=== PATIENT | male | born 1970 | race Caucasian/White ===

== ENCOUNTER 2019-06-05 18:12 | Emergency (ER) | payer MEDICARE, MEDICAID ==
[~2019-06-05] VITALS: Ht 167.6 cm; Wt 85.5 kg
[~2019-06-05 18:12] MED LIST: DULO-31 PO; LAMO150T2 PO; LEVO750T46 PO; PALI3TAB SQ; QUET-1 PO; RISP4TAB7 PO; VAL5T PO
--- NOTE | 2019-06-05 18:43 | NUR ---
I pulled the patient into triage, I gave him a Dr. Alfonso to drink, and he chugged 1/2 the can without any difficulty. He said that he feels like something is stuck in the right side 3/[address] down his neck. He is not drooling, he is swallowing fine.
[2019-06-05 21:23] LABS: BASOPHILS # (AUTO) 0.2 X10'3 (0-0.2); BASOPHILS % (AUTO) 0.8 % (0-1); EOSINOPHILS # (AUTO) 0.2 X10'3 (0-0.9); EOSINOPHILS % (AUTO) 1.1 % (0-6); HEMATOCRIT 44.4 % (42.0-52.0); HEMOGLOBIN 14.9 g/dl (14.0-17.9); LYMPHOCYTES # (AUTO) 3.9 X10'3 (1.1-4.8); LYMPHOCYTES % (AUTO) 17.9 % (21-51); MEAN CORPUSCULAR HEMOGLOBIN 30.9 PG (27.0-31.0); MEAN CORPUSCULAR HGB CONC 33.4 g/dL (33.0-36.5); MEAN CORPUSCULAR VOLUME 92.4 FL (78-98); MEAN PLATELET VOLUME 7.3 FL (7.4-10.4); MONOCYTES # (AUTO) 1.7 X10'3 (0-0.9); MONOCYTES % (AUTO) 7.7 % (2-12); NEUTROPHILS # (AUTO) 15.9 X10'3 (1.8-7.7); NEUTROPHILS % (AUTO) 72.5 % (42-75); PLATELET COUNT 361 X10'3 (140-440); RED BLOOD COUNT 4.81 X10'6 (4.70-6.10); WHITE BLOOD COUNT 21.9 X10'3 (4.5-11.0)
[2019-06-05 21:39] LABS: ALANINE AMINOTRANSFERASE 39 U/L (12-78); ALBUMIN 3.4 G/DL (3.4-5.0); ALBUMIN/GLOBULIN RATIO 0.8 (1.1-1.5); ALKALINE PHOSPHATASE 112 IU/L (46-116); ANION GAP 12 (8-16); ASPARTATE AMINO TRANSFERASE 16 U/L (10-37); BILIRUBIN,TOTAL 0.3 MG/DL (0.1-1.0); BLOOD UREA NITROGEN 11 MG/DL (7-18); CALCIUM 8.9 MG/DL (8.5-10.1); CHLORIDE 101 MMOL/L (99-107); CREATININE 1.22 MG/DL (0.60-1.10); GLUCOSE 101 MG/DL (70-104); POTASSIUM 3.6 MMOL/L (3.5-5.1); SODIUM 139 MMOL/L (135-145); TOTAL CARBON DIOXIDE 26.4 MMOL/L (24-32); TOTAL PROTEIN 7.5 G/DL (6.4-8.2); eGFR 63 ML/MIN
[2019-06-05 21:44] LABS: PARTIAL THROMBOPLASTIN TIME 30 SECONDS (22-32)
--- NOTE | 2019-06-05 22:02 | NUR ---
MD ENRIQUEZ AWARE OF LABS. NO NEW ORDERS.
[2019-06-05] MEDS ORDERED: iohexol 300mg/ml 100ml inj. ONE (22:04)
[2019-06-05] MEDS ORDERED: levoFLOXACIN-Levaquin 750MG/D5 150 ML IV STA (23:36)
[2019-06-05] MEDS ORDERED: CLINDAMYCIN/D5W 900mg/50ml 50 ML IV ONE (23:40)
[2019-06-06] MEDS ORDERED: potassium CL 10mEq/100ml bag 100 ML IV PRN ×2
[2019-06-06] MEDS ORDERED: magnesium 2GM in 50ml NS 50 ML IV PRN
[2019-06-06] MEDS ORDERED: acetaminophen 325mg tablet PO PRN ×2
[2019-06-06] MEDS ORDERED: magnesium 4gm in 100ml NS 100 ML IV PRN
[2019-06-06] MEDS ORDERED: magnesium Cl slow-release 64mg tablet PO PRN
[2019-06-06] MEDS ORDERED: potassium Cl 20 mEq SR tablet PO PRN ×2
[2019-06-06] MEDS ORDERED: ondansetron/PF 4mg/2ml inj IV PRN
[2019-06-06] MEDS ORDERED: normal saline 1000ml 1,000 ML IV ONE
[2019-06-06] MEDS ORDERED: mag hydrox/Alum hydrox/simeth 30ml oral suspension PO PRN
[2019-06-06] MEDS ORDERED: magnesium hydroxide 30ml (MOM) UD suspension PO PRN
[2019-06-06 00:15] VITALS: BP 105/51
[2019-06-06] MEDS ORDERED: CLIN300C54 PO (01:47)
[2019-06-06] MEDS ORDERED: AZIT-63 PO (01:47)
--- NOTE | 2019-06-06 01:58 | NUR ---
ALTON WINN AND I CLARIFIED WITH PT CAREGIVER THAT SHE WAS REFUSIN ADMISSION. ALTON WINN TOLD CAREGIVER THAT HE WOULD SEND PT HOME WITH ABX AND TO RETURN IF ANY SYMPTOMS WORSEN OR FEVER OCCURS.
[2019-06-06] MEDS ORDERED: enoxaparin 40mg/0.4ml syringe SQ SCH (08:00)
[2019-06-06] MEDS ORDERED: K and/or MAG REPLACEMENT MC SCH (08:00)
== END 2019-06-06 02:55 | disposition home or self-care (01) ==
LOC: ER 18:12 → UNDOADMIN 06-06 01:30 → SUR 3N 06-06 01:30 → UNDODISIN 06-06 03:52
DX: J69.0 Pneumonitis due to inhalation of food and vomit (principal); F17.200 Nicotine dependence, unspecified, uncomplicated; F12.90 Cannabis use, unspecified, uncomplicated; Z79.899 Other long term (current) drug therapy; Z88.0 Allergy status to penicillin
CPT/HCPCS: 36415; 70360; 70491; 71045; 71260; 80053; 85025; 85610; 85730; 96365; 96366; 96367; 99284; J1956; J7030; Q9967; 99285; J3490

== ENCOUNTER 2024-05-24 12:10 | Emergency (ER) | payer BC, MEDICAID ==
[~2024-05-24] VITALS: Ht 167.6 cm; Wt 61.1 kg
[~2024-05-24 12:10] MED LIST changes: +DIAZ5TAB22 PO; -LEVO750T46 PO; -RISP4TAB7 PO; -VAL5T PO
[2024-05-24 12:11] VITALS: BP 132/100; PULSE 99; RESP 16; TEMP 99.3; O2SAT 96
== END 2024-05-24 12:52 | disposition home or self-care (01) ==
LOC: ER 12:10
DX: G89.29 Other chronic pain (principal); Z76.0 Encounter for issue of repeat prescription; F41.9 Anxiety disorder, unspecified; F20.9 Schizophrenia, unspecified; F12.90 Cannabis use, unspecified, uncomplicated; R45.1 Restlessness and agitation; Z72.89 Other problems related to lifestyle; Z88.0 Allergy status to penicillin; Z79.899 Other long term (current) drug therapy
CPT/HCPCS: 99281

== ENCOUNTER 2025-02-06 13:22 | Emergency (ER) | payer BC, MEDICAID ==
[~2025-02-06] VITALS: Ht 167.6 cm; Wt 63.6 kg
[2025-02-06 13:26] VITALS: BP 113/70; PULSE 86; RESP 18; O2SAT 98
--- NOTE | 2025-02-06 14:34 | Physician Documentation ---
History of Present Illness ~ General Chief Complaint: See Chief Complaint Stated Complaint: MH Time Seen by MD: 13:57 OK to notify your PCP?: Yes Primary Medical Doctor: [facility] Source: patient Mode of Arrival: POV Exam Limitations: no limitations History of Present Illness Initial Comments 54-YEAR-OLD MALE WHO IS HERE FOR CLEARANCE TO GET INTO [facility]. NO MEDICAL PROBLEMS OTHER THAN MENTAL HEALTH AND TAKING MEDICATION PRESCRIBED. STATES HE IS FOLLOWED BY [facility] FOR THIS. PATIENT REPORTS HE IS A SMOKER. DENIES ANY SHORTNESS OF BREATH, RECENT ILLNESSES, CHEST PAIN, ABDOMINAL PAIN, NAUSEA, EDEMA. Medication Reconciliation Allergies: Coded Allergies: Penicillins (Unverified Allergy, Intermediate, RASH, 02/06/25) Scheduled Diazepam* (Valium*), 2 TAB PO HS, (Reported) Duloxetine Hcl* (Cymbalta*), 60 MG PO DAILY, (Reported) Lamotrigine* (Lamictal*), 1 TAB PO DAILY, (Reported) Paliperidone (Invega), 238 MG SQ Q30D, (Reported) Quetiapine Fumarate (Seroquel), 5 TAB PO HS, (Reported) Past Medical History Past Medical History: No Pertinent History, Hernia, Anxiety, Schizophrenia Past Surgical History: other Other Past Surgical History: hernia repair Alcohol Use: Occasionally Drug Use: marijuana Lives with: Mother Lives In: Home Occupation: disabled Review of Systems All Other Systems at this time: Reviewed and Negative Physical Exam Physical Exam Vital Signs: Temperature: 98.4, Heart Rate: 86, Respiratory Rate: 18, BP: 113/70, Pulse Oximetry: 98, Weight: 63.640 Physical Exam General Appearance: Alert, WD/WN. NAD. HEENT: NCAT, PERRL, EOMI. Neck: Supple, trachea midline. Cardiovascular: RRR. No m/r/g. Lungs: FAINT EXPIRATORY WHEEZING IN POSTERIOR LUNG BAÑEULOS. NO RHONCHI OR RALES. NO COUGHING OR RESPIRATORY DISTRESS. Extremities: Normal inspection. No edema. Skin: Warm/dry, normal color Neurological: Alert and oriented x4, normal gait. Psychiatric: Affect congruent with mood. Progress Results/Orders Results/Orders Vital Signs 02/06/25 02/06/25 13:26 14:54 Temp 98.4 98.4 Pulse 86 Resp 18 B/P (MAP) 113/70 Pulse Ox 98 Medical Decision Making Differential Diagnosis Socioeconomic factors, mental health factors contributing to patient's ho melessness Departure Time of Disposition: 14:32 Disposition: 01 HOME / SELF CARE / HOMELESS Impression: Primary Impression: Homelessness Additional Impressions: Nicotine dependence Qualified Codes: F17.210 - Nicotine dependence, cigarettes, uncomplicated Mental health disorder Condition: Stable Discharge Instructions: General Discharge Instructions Additional Instructions: YOU ARE MEDICALLY CLEARED FOR [facility] DISCOVERY Referrals: NO PRIMARY CARE PROVIDER (PCP) Education Educated: Patient Educated regarding: diagnosis, treatment, need for follow up Signature Scribe Signature: X Attestation: SUSAN PATEL February 06, 2025 14:34
[2025-02-06 14:54] VITALS: TEMP 98.4
== END 2025-02-06 14:56 | disposition home or self-care (01) ==
LOC: ER 13:23
DX: Z02.89 Encounter for other administrative examinations (principal); F17.200 Nicotine dependence, unspecified, uncomplicated; F12.90 Cannabis use, unspecified, uncomplicated; F41.9 Anxiety disorder, unspecified; F20.9 Schizophrenia, unspecified; Z88.0 Allergy status to penicillin; Z59.00 Homelessness unspecified; Z98.890 Other specified postprocedural states; Z79.899 Other long term (current) drug therapy; Z72.89 Other problems related to lifestyle
CPT/HCPCS: 99281

== ENCOUNTER 2025-08-17 11:22 | Inpatient (IN) | payer BC, MEDICAID ==
[~2025-08-17] VITALS: Ht 167.6 cm; Wt 71.5 kg
--- NOTE | 2025-08-17 11:44 | Physician Documentation ---
History of Present Illness ~ Chief Complaint: Mental Health Eval Stated Complaint: MH EVAL/SI Time Seen by MD: 11:33 Primary Medical Doctor: [facility] HPI 55-year-old male with a well known past medical history of Schizophrenia and OCD. Brought to the Emergency today at his request because he has been having suicidal thoughts with specific plan to run out into traffic. He does see Dr. Fragoso and just recently as of last Sunday begin having therapy. Medication Reconciliation Allergies: Coded Allergies: Penicillins (Unverified Allergy, Intermediate, RASH, 08/17/25) Scheduled Buspirone HCl (Buspirone HCl), 1 TAB PO BID, (Reported) Diazepam* (Valium*), 2 TAB PO HS, (Reported) Duloxetine Hcl* (Cymbalta*), 60 MG PO DAILY, (Reported) Fluvoxamine Maleate (Fluvoxamine Maleate), 1 TAB PO DAILY, (Reported) Fluvoxamine Maleate (Fluvoxamine Maleate), 1 TAB PO HS, (Reported) Hydroxyzine Hcl* (Atarax*), 1 TAB PO QID, (Reported) Lamotrigine* (Lamictal*), 1 TAB PO DAILY, (Reported) Olanzapine (Olanzapine), 1 TAB PO HS, (Reported) Paliperidone (Invega), 238 MG SQ Q30D, (Reported) Quetiapine Fumarate (Quetiapine Fumarate ER), 1 TAB PO HS, (Reported) Quetiapine Fumarate (Quetiapine Fumarate ER), 1 TAB PO HS, (Reported) Sildenafil Citrate (Sildenafil Citrate), 1 TAB PO DAILY, (Reported) Xanomeline Tart/Trospium Chlor (Cobenfy 125 mg-30 mg Capsule), 1 CAP PO BID, (Reported) Miscellaneous Medications Xanomeline Tart/Trospium Chlor (Cobenfy 100 mg-20 mg Capsule), (Reported) Discontinued Medications Quetiapine Fumarate (Seroquel), 5 TAB PO HS, (Reported) Discontinued Reason: patient no longer taking Past Medical History Past Medical History: No Pertinent History, Hernia, Anxiety, Schizophrenia Past Surgical History: other Other Past Surgical History: hernia repair Alcohol Use: Occasionally Drug Use: marijuana Lives with: Mother Lives In: Home Occupation: disabled Review of Systems All Other Systems at this time: Reviewed and Negative Psychiatric: Reports: anxiety, hopeless, suicidal, hallucinations Physical Exam Vital Signs: RN Vital Signs have been reviewed: Yes, Temperature: 97.0, Source: Temporal, Heart Rate: 100, Respiratory Rate: 16, BP: 144/106, Pulse Oximetry: 97, Weight: 70.400 Oxygen Flow Rate: 0 General Appearance: alert, WD/WN, mild distress General Appearance anxious EENT: PERRL/EOMI Head: normal inspection Neck: non-tender Respiratory: lungs clear Chest: no accessory muscle use Cardiovascular: normal peripheral pulses Gastrointestinal: non-tender Extremities: non-tender Back: normal inspection Neurologic: oriented x4 Motor / Sensory: no motor deficit, no sensory deficit Cerebellar function exam: normal Appearance/Memory/Insight: appropriate appearance Behavior/Eye contact/Speech: cooperative Thought/Hallucinations: obsessive, auditory hallucinations Affect: flat Skin: warm/dry Lymphatic: no adenopathy Progress Results/Orders Results/Orders Orders - ELIZABETH GONZALES Med Rec (08/17/25 11:33) 1799.11 (08/17/25 11:33) Close Observation Level (08/17/25 11:33) Covid19 Binax Poc Result Entry (08/17/25 11:33) Substance Use Navigator (08/17/25 11:33) Regular Diet (08/17/25 Dinner) Duloxetine 30mg Capsule.Dr (Cymbalta 30m (08/18/25 08:00) Fluvoxamine 25mg Tab (Fluvoxamine 25mg T (08/18/25 08:00) Buspirone Tablet (Buspar Tablet) (08/17/25 20:00) Lamotrigine Tablet (Lamictal Tablet) (08/18/25 08:00) Olanzapine 5mg Tablet (Zyprexa 5mg Table (08/17/25 21:00) Completed Orders - ELIZABETH GONZALES Cbc/Diff (08/17/25 11:33) Drug Screen, Urine (08/17/25 11:33) Ethanol (08/17/25 11:33) TSH (08/17/25 11:33) BMP (08/17/25 11:33) Ua With Microscopic (08/17/25 15:30) Vital Signs 08/17/25 08/17/25 11:26 14:44 Temp 97.0 Pulse 100 Resp 16 B/P (MAP) 144/106 Pulse Ox 97 O2 Flow Rate 0 Laboratory Tests Test 08/17/25 11:43 08/17/25 11:55 08/17/25 15:30 White Blood Count 12.1 H Red Blood Count 5.00 Hemoglobin 14.9 Hematocrit 43.6 Mean Corpuscular Volume 87.2 Mean Corpuscular Hemoglobin 29.7 Mean Corpuscular Hemoglobin Concent 34.1 Red Cell Distribution Width 14.1 Platelet Count 396 Mean Platelet Volume 7.7 Neutrophils (%) (Auto) 76.6 H Lymphocytes (%) (Auto) 17.5 L Monocytes (%) (Auto) 4.8 Eosinophils (%) (Auto) 0.1 Basophils (%) (Auto) 1.0 Neutrophils # (Auto) 9.3 H Lymphocytes # (Auto) 2.1 Monocytes # (Auto) 0.6 Eosinophils # (Auto) 0.0 Basophils # (Auto) 0.1 CBC Comment Sodium Level 139 Potassium Level 3.3 L Chloride Level 109 H Carbon Dioxide Level 21.9 L Anion Gap 8 Blood Urea Nitrogen 12 Creatinine 0.81 Estimated GFR/1.73 m2 > 90 BUN/Creatinine Ratio 14.8 Glucose Level 110 H Calcium Level 8.6 Albumin 3.7 Thyroid Stimulating Hormone (TSH) 2.87 Chemistry Comments Ethyl Alcohol Level < 10 SARS-CoV-2 Antigen (Rapid) Negative Urine Specimen Description Voided Urine Color Yellow Urine Clarity Cloudy Urine pH 7.0 Urine Specific Howe 1.015 Urine Protein Trace Urine Glucose (UA) Negative Urine Ketones 40 H Urine Occult Blood Negative Urine Nitrite Negative Urine Bilirubin Small Urine Urobilinogen 1.0 Urine Leukocyte Esterase Negative Urine RBC 0-2 Urine WBC 0-4 Urine Squamous Epithelial Cells Few Urine Amorphous Phosphates 4+ Urine Bacteria 1+ Volume Urine Centrifuged 10 ml Urine Comment Urine Opiates Screen Negative Urine Methadone Screen Negative Urine Fentanyl Screen Negative Urine Barbiturates Screen Negative Urine Phencyclidine Screen Negative Urine Amphetamines Screen Negative Urine Benzodiazepines Screen Negative Urine Cocaine Screen Negative Urine Cannabinoids Screen Negative Drug Screen Comment Medical Decision Making Additional information obtaine: family Findings Labs reviewed. Pt remains directable. Cleared for Behavioral Health evaluation. Differential Dx:Considerations: Include: Alcohol abuse, Anxiety, Bipolar disorder, Conversion disorder, Depression, Encephaloathy, Homicidal, Panic disorder, Personality disorder, Schizophrenia, Substance abuse, Suicidal, Other Departure Impression: Primary Impression: Suicidal ideation Additional Impression: Schizophrenia Qualified Codes: F20.9 - Schizophrenia, unspecified Referrals: NO PRIMARY CARE PROVIDER (PCP) Signature Scribe Signature: . Attestation: . ELIZABETH GONZALES PAC Aug 17, 2025 11:44
[2025-08-17 12:08] LABS: MEAN PLATELET VOLUME 7.7 FL (7.4-10.4); RED CELL DISTRIBUTION WIDTH 14.1 % (11.5-14.5)
[2025-08-17 12:33] LABS: CREATININE 0.81 MG/DL (0.60-1.10); ETHANOL < 10 MG/DL (<10); TOTAL CARBON DIOXIDE 21.9 MMOL/L (24-32); eCRCL 94 ML/MIN; eGFR > 90 ML/MIN
[2025-08-17] MEDS ORDERED: OLAN15TA97 PO (15:27)
[2025-08-17] MEDS ORDERED: [UNRECOGNIZED DRUG - CODE] PO (15:27)
[2025-08-17] MEDS ORDERED: HYDR-3686 PO (15:27)
[2025-08-17] MEDS ORDERED: SILD100T70 PO (15:27)
[2025-08-17] MEDS ORDERED: FLUV25TA9 PO (15:27)
[2025-08-17] MEDS ORDERED: FLUV50TA10 PO (15:27)
[2025-08-17] MEDS ORDERED: QUET400T54 PO (15:27)
[2025-08-17] MEDS ORDERED: BUSP30TA3 PO (15:27)
[2025-08-17] MEDS ORDERED: XANO1CAP4 (15:27)
[2025-08-17] MEDS ORDERED: QUET-28 PO (15:27)
[2025-08-17 15:55] LABS: LEUKOCYTE ESTERASE ,URINE NEGATIVE (Neg); NITRITES, URINE NEGATIVE (Neg); OCCULT BLOOD,URINE NEGATIVE (Neg)
[2025-08-17 16:03] LABS: UA COLLECTION TYPE VOIDED
[2025-08-17 16:13] LABS: AMORPHOUS PHOSPHATES 4+; SQUAMOUS EPITHELIAL CELL,UR FEW /LPF (FEW)
[2025-08-17 16:18] LABS: URINE AMPHETAMINE SCREEN NEGATIVE (Neg); URINE BARBITUATE SCREEN NEGATIVE (Neg); URINE BENZODIAZEPINES SCREEN NEGATIVE (Neg); URINE CANNABINOID SCREEN NEGATIVE (Neg); URINE COCAINE SCREEN NEGATIVE (Neg); URINE METHADONE SCREEN NEGATIVE (Neg); URINE OPIATE SCREEN NEGATIVE (Neg); URINE PHENCYCLIDINE SCREEN NEGATIVE (Neg)
[2025-08-17] MEDS: busPIRone 15mg tablet PO SCH (20:26)
[2025-08-17] MEDS: OLANZAPINE 5 MG TABLET PO SCH (20:27)
[2025-08-17 20:45] LABS: INFLUENZA TYPE A ANTIGEN RAPID NEGATIVE (Negative); INFLUENZA TYPE B ANTIGEN RAPID NEGATIVE (Negative)
[2025-08-18] MEDS: duloxetine 30mg CAPSULE.DR PO SCH (08:55)
[2025-08-18] MEDS: fluvoxamine 25 MG tablet PO SCH (08:56)
[2025-08-18 14:11] VITALS: BP 115/73; PULSE 82; RESP 16; TEMP 98; O2SAT 95
[2025-08-18] MEDS ORDERED: mag hydrox/Alum hydrox/simeth 30ml oral suspension PO PRN (14:35)
[2025-08-18] MEDS ORDERED: loperamide 2mg capsule PO PRN (14:35)
[2025-08-18 15:17] VITALS: RESP 16; O2SAT 95
--- NOTE | 2025-08-18 16:04 | PROGRESS NOTE ---
Progress Note Dictate Providers to CC ~ Central Line/PICC still needed: N\\A Antibiotic Ordered?: No MRSA Education MRSA Education Provided to pt: No Objective Vitals Vital Signs Date Time Temp Pulse Resp B/P (MAP) Pulse Ox O2 Delivery O2 Flow Rate FiO2 08/18/25 14:13 98.9 89 18 124/80 99 08/18/25 05:23 0 Lab Results: 08/17/25 1143 08/17/25 1143 Psychiatrist's Progress Note Date of Service: Aug 18, 2025 Notes CHIEF COMPLIANT DANGER TO OTHERS HISTORY OF PRESENT ILLNESS 55-year-old male with well known past medical history of schizophrenia in OCD. Brought to the emergency room today at his request because he has been having suicidal thoughts with [place] plan to run out into traffic. He does see Dr. Fragoso and just recently starting having therapy last Sunday. CHART REVIEW ASSESSMENT The patient was interviewed in observation room. The patient was actively in rec room. The patient endorses "I The patient endorses adequate sleep and food intake The patient is stable no acute distress noted. The patient as disorganized and bit agitated. Per staff report patient is medication compliant. Per staff report no abnormal behaviors. Will continue daily assessment and adjusting treatment as needed. Closely monitor behavior and response to medication during hospitalization. Discussed treatment plan with patient. ASE/risks and benefits of chosen treatment. He verbalized understanding and consented to treatment. REVIEW OF LABS WBC 12.1 RBC 5.00 HEMOGLOBIN 14.9 HEMATOCRIT 43.6 PLATELET 396 SODIUM 139 POTASSIUM 3.3 CHLORIDE 109 ANION GAP 8 BUN 12 CREATININE 0.94 EGFR 0.81 GLUCOSE 110 CALCIUM 8.6 ALBUMIN 3.7 TSH 2.87 URINALYSIS NEGATIVE URINE TOX SCREEN NEGATIVE MENTAL STATUS EXAM APPEARANCE: AVERAGE HEIGHT OBESE MALE. DISHEVELED BLACK SHOULDER LENGTH HAIR. WEARING GREEN SCRUBS. MUSTACHE AND RODRÍGUEZ. SPEECH: CIRCUMSTANTIAL EYE CONTACT: AVOIDANT AFFECT: FLAT MOOD: "I FEEL GOOD', IRRITABLE ORIENTATION IMPAIRMENT: YEAR, MONTH, TIME, PLACE MEMORY IMPAIRMENT: NONE ATTENTION: FULL HALLUCINATIONS: NONE SUICIDALITY: NONE DELUSIONS: NONE BEHAVIOR: GUARDED, AGITATED JUDGMENT: FAIR INSIGHT: FAIR TREATMENT 5150 HOLD-DTO- Patient is unable to formulate a plan to safety. We are still titrating medications to an effective dose while maintaining a therapeutic environment to prevent decompensation and readmission. Monitoring by Staff, Milieu, Group, and Individual counseling as needed -- According to the [place] Suicide Assessment the above named patient is on Q15 MINUTE CHECKS. Total time spent 120 minutes on REVIEW OF Clinical notes [X ] RN notes [X] PCT documentation [X] SW notes Labs [ X] Medications [X] Care trends/care activity [X] Vitals [X] DISCUSSION WITH vehicle cost engineer [X] Staff SW Treatment Team [X] DISCHARGE UNSURE AT THIS TIME. DISCHARGE HOME ONCE STABLE CODING VISIT-PSYCHIATRY Date of Service: Aug 18, 2025 Billing Provider: BLAINE EDWARDS APRN Psych Common Visit Codes: [id number] INP/OBS CARE (High) BLAINE EDWARDS APRN Aug 18, 2025 16:04
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
[2025-08-18 19:00] VITALS: RESP 20; O2SAT 97
[2025-08-18 20:00] VITALS: BP 107/63; PULSE 80; RESP 20; TEMP 98.1; O2SAT 97
[2025-08-18] MEDS: NICOTINE POLACRILEX 2 MG LOZENGE BC PRN (20:13)
[2025-08-18] MEDS: magnesium hydroxide 30ml (MOM) UD suspension PO PRN (20:25)
[2025-08-19 07:00] VITALS: RESP 17
[2025-08-19 08:00] VITALS: BP 100/69; PULSE 107; RESP 17; TEMP 97.9; O2SAT 100
[2025-08-19 08:08] LABS: LDL CHOLESTEROL 131.0 MG/DL (50-100)
[2025-08-19] MEDS: nicotine 21mg patch - 24 hr TD SCH (08:45)
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
[2025-08-19 19:00] VITALS: RESP 16; O2SAT 98
--- NOTE | 2025-08-19 19:18 | HISTORY AND PHYSICAL ---
History & Physical Providers to CC ~ History of Present Illness Reason for Admit\Complaint: Suicidal ideation History of Present Illness 55-year-old male with well known past medical history of schizophrenia in OCD. Brought to the emergency room today at his request because he has been having suicidal thoughts with plan to run out into traffic. Patient is very poor historian . All records from ER and psychiatric consultation reviewed. Patient does have chronic schizophrenia and OCD disorder. Patient is unable to recall any medical issues. Allergies: Coded Allergies: Penicillins (Unverified Allergy, Intermediate, RASH, 08/17/25) Home Medications Home Medications Active Reported Cobenfy 100 mg-20 mg Capsule (Xanomeline Tart/Trospium Chlor) 100 Mg-20 Mg Capsule Quetiapine Fumarate ER (Quetiapine Fumarate) 200 Mg Tab.er.24h 1 Tab PO HS Olanzapine 15 Mg Tablet 1 Tab PO HS Sildenafil Citrate 100 Mg Tablet 1 Tab PO DAILY Quetiapine Fumarate ER (Quetiapine Fumarate) 400 Mg Tab.er.24h 1 Tab PO HS Buspirone HCl 30 Mg Tablet 1 Tab PO BID Atarax* (Hydroxyzine HCl) 25 Mg Tablet 1 Tab PO QID Cobenfy 125 mg-30 mg Capsule (Xanomeline Tart/Trospium Chlor) 125 Mg-30 Mg Capsule 1 Cap PO BID Fluvoxamine Maleate 50 Mg Tablet 1 Tab PO HS Fluvoxamine Maleate 25 Mg Tablet 1 Tab PO DAILY Cymbalta* (Duloxetine HCl) 30 Mg Capsule.dr 60 Mg PO DAILY Valium* (Diazepam) 5 Mg Tablet 2 Tab PO HS Invega (Paliperidone) 3 Mg Tab.er.24 238 Mg SQ Q30D Lamictal* (Lamotrigine) 150 Mg Tablet 1 Tab PO DAILY Past Medical History Past Medical History Hernia, Anxiety, Schizophrenia Past Surgical History Surgical History Comment hernia repair Past Social History Social History Comment Patient is disabled homeless. ROS ROS Review of system limited due to patient's psychiatric condition Exam Vitals: Vital Signs Date Time Temp Pulse Resp B/P (MAP) Pulse Ox O2 Delivery O2 Flow Rate FiO2 08/19/25 08:00 97.9 107 17 100/69 (79) 100 Room Air 08/19/25 07:00 0.0 General: General-patient not in any acute distress, awake chronically ill-appearing HEENT-atraumatic normocephalic, neck supple without elevated JVD, No lymphadenopathy bilaterally. Eyes-no icterus or pallor seen in eyes Chest-clear to auscultation bilaterally, breathing nonlabored no tachypnea, no wheezing, no crepitation, no crackles. Heart-S1-S2 normal, regular heart rate no murmur Abdomen bowel sounds positive on auscultation, soft nondistended nontender no guarding, no rigidity Skin no active skin rash Neurology-grossly intact, nonfocal, awake, cooperated during physical examination Extremity- no pedal edema able to move all 4 extremities Diagnostic Data Last Recorded Lab Results: 08/17/25 1143 08/17/25 1143 Advance Care Planning Advanced Care plannin - 30 Minutes Additional Plan 55-year-old male with well known past medical history of schizophrenia and OCD. Patient is unable to recall any medical issues. Management of patient's psychiatric issues as per psychiatric team. We will continue to follow patient from hospitalist team as needed or as per protocol. will repeat CBC and BMP . Date of Service: Aug 19, 2025 Billing Provider: BOWEN MURRAY MD Common Visit Codes: [id number] INP/OBS CARE (LOW) BOWEN MURRAY MD Aug 19, 2025 19:18
[2025-08-19 19:23] VITALS: BP 121/73; PULSE 90; RESP 16; TEMP 98.1; O2SAT 98
[2025-08-20 07:30] VITALS: RESP 16
[2025-08-20 09:49] LABS: HBSAG SCREEN Negative (Negative); HEP B CORE AB, IGM Negative (Negative); HEP B CORE AB, TOT Negative (Negative)
--- NOTE | 2025-08-20 16:29 | PROGRESS NOTE ---
Progress Note Dictate Providers to CC ~ Central Line/PICC still needed: N\\A Antibiotic Ordered?: No MRSA Education MRSA Education Provided to pt: No Objective Vitals Vital Signs Date Time Temp Pulse Resp B/P (MAP) Pulse Ox O2 Delivery O2 Flow Rate FiO2 08/20/25 07:30 16 Room Air 0.0 08/19/25 19:23 98.1 90 121/73 (89) 98 Lab Results: 08/17/25 1143 08/17/25 1143 Problem\\Assessment\\Plan Problems/Diagnosis: (1) Schizophrenia (2) OCD (obsessive compulsive disorder) (3) Suicidal ideation Psychiatrist's Progress Note Date of Service: Aug 20, 2025 Notes CHART REVIEW Pt is a 55 year old single white male who was came into [facility] on a 5150 for DTS due to having a suicidal thoughts with a plan to jump out into traffic. Pt reports ongoing auditory hallucinations that have been interfering with sleep. He is intermittently engaged, however suggesting possible intellectual functioning impairment or disorganization related to psychosis. Pt reported that he can' sleep and the voices won't let me sleep and I don't have a home. ASSESSMENT The patient was interviewed in observation room. The patient was actively resting in bed with eyes open. The patient endorses "I am doing better. The patient endorses no worsening mental health symptoms. Denies SI Denies HI. Denies AVH. The patient endorses adequate sleep and food intake. The patient is stable no acute distress noted. The patient presents as calm and cooperative. Per staff report patient is medication compliant. Per staff report no abnormal behaviors. Will continue daily assessment and adjusting treatment as needed. Closely monitor behavior and response to medication during hospitalization. Results Of any Diagn. Testing Results Of any Diagn. Testing REVIEW OF LABS WBC 12.1 RBC 5.00 HEMOGLOBIN 14.9 HEMATOCRIT 43.6 PLATELET 396 SODIUM 139 POTASSIUM 3.3 CHLORIDE 109 ANION GAP 8 BUN 12 CREATININE 0.94 EGFR 0.81 GLUCOSE 110 CALCIUM 8.6 ALBUMIN 3.7 TSH 2.87 URINALYSIS NEGATIVE URINE TOX SCREEN NEGATIVE Speech: Normal Eye Contact: Normal Motor Activity: Normal Affect: Constricted Memory Impairment: None Attention: Normal Hallucinations: None Other: None Suicidality: None Homicidality: None Delusions: None Behavior: Cooperative Insight: Fair Judgment: Fair Treatment BUSPAR 30MG PO BID CYMBALTA 60MG PO DAILY FLUVOXAMINE 50MG PO DAILY LAMITICAL 150MG PO DAILY Initiate RISPERIDONE 0.5MG PO QHS 5150 HOLD-DTS- Patient is unable to formulate a plan to safety. We are still titrating medications to an effective dose while maintaining a therapeutic environment to prevent decompensation and readmission. Monitoring by Staff, Milieu, Group, and Individual counseling as needed -- According to the [place] Suicide Assessment the above named patient is on Q15 MINUTE CHECKS. Total time spent 35 minutes on REVIEW OF Clinical notes [X ] RN notes [X] PCT documentation [X] SW notes Labs [ X] Medications [X] Care trends/care activity [X] Vitals [X] DISCUSSION WITH wedding makeup artist [X] Staff SW Treatment Team [X] Discharge DISCHARGE HOME ONCE STABLE CODING VISIT-PSYCHIATRY Date of Service: Aug 20, 2025 Billing Provider: BLAINE EDWARDS APRN Psych Common Visit Codes: [id number] INP/OBS CARE(Mod) Problem Qualifiers (1) Schizophrenia: Qualified Codes: F20.9 - Schizophrenia, unspecified BLAINE EDWARDS APRN Aug 20, 2025 16:29
[2025-08-20 19:00] VITALS: RESP 16; O2SAT 98
[2025-08-20 19:15] VITALS: BP 139/85; PULSE 80; RESP 16; TEMP 97.2; O2SAT 98
[2025-08-21 07:30] VITALS: BP 120/80; PULSE 78; RESP 12; TEMP 98.2; O2SAT 100
--- NOTE | 2025-08-21 08:57 | PROGRESS NOTE ---
Progress Note Dictate Providers to CC ~ Central Line/PICC still needed: N\\A Antibiotic Ordered?: No MRSA Education MRSA Education Provided to pt: No Objective Vitals Vital Signs Date Time Temp Pulse Resp B/P (MAP) Pulse Ox O2 Delivery O2 Flow Rate FiO2 08/20/25 19:15 97.2 80 16 139/85 (103) 98 Room Air 08/20/25 07:30 0.0 Lab Results: 08/17/25 1143 08/17/25 1143 Problem\\Assessment\\Plan Problems/Diagnosis: (1) Schizophrenia (2) OCD (obsessive compulsive disorder) (3) Suicidal ideation Psychiatrist's Progress Note Date of Service: Aug 21, 2025 Notes CHART REVIEW Pt is a 55 year old single white male who was came into [facility] on a 5150 for DTS due to having a suicidal thoughts with a plan to jump out into traffic. Pt reports ongoing auditory hallucinations that have been interfering with sleep. He is intermittently engaged, however suggesting possible intellectual functioning impairment or disorganization related to psychosis. Pt reported that he can' sleep and the voices won't let me sleep and I don't have a home. ASSESSMENT The patient was interviewed in observation room. The patient was actively ambulating in hallway. The patient endorses "good." The patient endorses he would like to be discharged to [facility]. Denies SI. Denies HI. Denies AVH. The patient endorses adequate sleep and food intake The patient is stable no acute distress noted. The patient presents as calma nd cooperative. Per staff report patient is medication compliant. Per staff report no abnormal behaviors. Will continue daily assessment and adjusting treatment as needed. Closely monitor behavior and response to medication during hospitalization. Results Of any Diagn. Testing REVIEW OF LABS WBC 12.1 RBC 5.00 HEMOGLOBIN 14.9 HEMATOCRIT 43.6 PLATELET 396 SODIUM 139 POTASSIUM 3.3 CHLORIDE 109 ANION GAP 8 BUN 12 CREATININE 0.94 EGFR 0.81 GLUCOSE 110 CALCIUM 8.6 ALBUMIN 3.7 TSH 2.87 URINALYSIS NEGATIVE URINE TOX SCREEN NEGATIVE Speech: Normal Eye Contact: Normal Motor Activity: Normal Affect: Full Orientation Impairment: None Memory Impairment: None Attention: Normal Hallucinations: None Other: None Suicidality: None Homicidality: None Delusions: None Behavior: Cooperative Insight: Fair Judgment: Fair Treatment BUSPAR 30MG PO BID CYMBALTA 60MG PO DAILY FLUVOXAMINE 50MG PO DAILY LAMITICAL 150MG PO DAILY RISPERIDONE 0.5MG PO QHS 5150 HOLD-DTS- Patient is unable to formulate a plan to safety. We are still titrating medications to an effective dose while maintaining a therapeutic environment to prevent decompensation and readmission. Monitoring by Staff, Milieu, Group, and Individual counseling as needed -- According to the [place] Suicide Assessment the above named patient is on Q15 MINUTE CHECKS. Total time spent 45 minutes on REVIEW OF Clinical notes [X ] RN notes [X] PCT documentation [X] SW notes Labs [ X] Medications [X] Care trends/care activity [X] Vitals [X] DISCUSSION WITH vacuum form operator [X] Staff SW Treatment Team [X] Discharge DISCHARGE TO [facility] ONCE STABLE CODING VISIT-PSYCHIATRY Date of Service: Aug 21, 2025 Billing Provider: BLAINE EDWARDS APRN Psych Common Visit Codes: [id number] INP/OBS CARE(Low) Problem Qualifiers (1) Schizophrenia: Qualified Codes: F20.9 - Schizophrenia, unspecified BLAINE EDWARDS APRN Aug 21, 2025 08:57
[2025-08-21 19:00] VITALS: RESP 16; O2SAT 96
[2025-08-21 19:28] VITALS: BP 96/61; PULSE 92; RESP 16; TEMP 98.4; O2SAT 96
--- NOTE | 2025-08-21 19:33 | PROGRESS NOTE- Residence ---
Progress Note - Resident Providers to CC Resident Creating Document: NASH CAT RES ~ Antibiotic Timeout Antibiotic Ordered?: No Subjective Patient was seen at the [facility] unit this morning. Patient does not have any special medical complaints at the moment. Objective Vital Signs Date Time Temp Pulse Resp B/P (MAP) Pulse Ox O2 Delivery O2 Flow Rate FiO2 08/21/25 07:30 98.2 78 12 120/80 (93) 100 Room Air 0.0 Result Diagram: 08/17/25 1143 08/17/25 1143 Vitals were stable at the moment with temp 98.2 F, [place] 70/minute, RR 12/minute, BP 120/80 mm Hg, pulse oximetry 100% on room air. On examination, General: Well alert, well oriented, not confused, not agitated, not in acute distress, well cooperated during the physical. Chronically ill appearing. HEENT: Conjunctive are pink, sclerae clear, no icterus, pupil is equal in both sides, reactive to light, no ear discharge, no pharyngeal erythema or an edema, mouth and lips are moist. Neck: Supple, no JVD, no lymphadenopathy and thyromegaly. Lungs:Equal air entry on both lungs, no additional sounds Heart: S1-S2 regular sinus rhythm and, regular rate, no gallops, no rubs, no murmurs Abdomen: No visible peristalsis, Bowel sounds present on auscultation, soft, nontender, no guarding, no rigidity Extremities: No obvious deformities, no pitting edema bilaterally, capillary refill intact, able to wiggle toes both sides, peripheral pulsations are intact on both sides HAND II THERMAL CUTTER: No focal neurological deficits, no motor and sensory weakness in all 4 extremities, could move all 4 extremities Musculoskeletal: No joint swelling, deformities, inflammations, and no scoliosis and back tenderness Skin: No active skin lesions and rashes Assessment Assessment A 55-year-old male with well known past medical history of schizophrenia and OCD. Patient is unable to recall any medical issues. Plan Plan # DTS, 5150 hold for SI # Possible Intellectual functioning impairment or disorganization # auditory hallucination from schizophrenia -manage as per psychiatric team # nonspecific neutrophilic leukocytosis -UA showed normal -no source of skin infection -order chest x-ray for possible chest infection -ordered procalcitonin ESR CRP to follow up # electrolyte imbalances-hypokalemia -p.o. K-Dur 20 mEq b.i.d. for three days -plan to rechecked CMP # hyperlipidemia # hyperglycemia -HGB A1c six -normal thyroid function -LDL 131, pending lipid profile to calculate ASCVD risk and we will consider to consult with patient to initiate statin medication including risks and benefits of statin medication counseled Disposition: Hospitalist team will follow the patient during hospitalization, you are welcome to questions and medical consultation, appreciate for letting us involved in patient's care. Resident MD attestation: Patient was seen, examined and discussed with attending MD, Dr. Jose Alejandro CAT MD Internal Medicine Resident, PGY3 [facility] Date of Service: Aug 21, 2025 Billing Provider: MELVA MATUTE MD, TIN, RES Aug 21, 2025 19:33
--- NOTE | 2025-08-22 07:24 | RADIOLOGY REPORT ---
CHEST RADIOGRAPH Indication: Possible Chest infection Technique: DI CHEST,SINGLE VIEW Comparison: None FINDINGS: The cardiac silhouette is unremarkable. The lungs demonstrate bibasilar airspace opacities, [id number]-left. The pulmonary vasculature is unremarkable. There is no pleural effusion. There is no pneumothorax. IMPRESSION: Bibasilar airspace opacities, [id number]-left.
[2025-08-22 07:30] VITALS: RESP 16; O2SAT 99
[2025-08-22] MEDS: potassium Cl 20 mEq SR tablet PO SCH (07:46)
[2025-08-22 08:00] VITALS: BP 117/77; PULSE 112; RESP 16; TEMP 98.5; O2SAT 99
[2025-08-22 10:01] LABS: CHOL/HDL RATIO 4.7 (0.00-4.99); LDL CHOLESTEROL 132 MG/DL (50-100)
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
[2025-08-22 19:00] VITALS: BP 127/71; PULSE 71; RESP 20; TEMP 97.7; O2SAT 99
[2025-08-22 19:46] LABS: CREATININE 0.85 MG/DL (0.60-1.10); TOTAL CARBON DIOXIDE 24.5 MMOL/L (24-32); eCRCL 90 ML/MIN; eGFR > 90 ML/MIN
[2025-08-22] MEDS: OLANZAPINE 5 MG TABLET PO SCH (20:55)
[2025-08-23 07:00] VITALS: RESP 16; O2SAT 99
[2025-08-23 08:00] VITALS: BP 123/80; PULSE 64; RESP 16; TEMP 97.2; O2SAT 99
[2025-08-23] MEDS: fluvoxamine 25 MG tablet PO SCH (08:00)
--- NOTE | 2025-08-23 14:24 | PROGRESS NOTE ---
Daily Progress Note Providers to CC ~ Antibiotic Timeout Antibiotic Ordered?: No Subjective This is the hospitalist progress note on patients hospitalized at [facility] [place]. The patient has no acute medical complaints or concerns and none voiced by nursing staff. The patient is requesting juice. Objective Vital Signs Date Time Temp Pulse Resp B/P (MAP) Pulse Ox O2 Delivery O2 Flow Rate FiO2 08/23/25 08:00 97.2 64 16 123/80 (94) 99 Room Air 08/22/25 07:30 0.0 Result Diagram: 08/22/251906 Gen. No acute distress alert and oriented Lungs clear to ascultation bilaterally, no wheezes rales or rhonchi appreciated Heart normal sinus rhythm no murmurs rubs or clicks noted Abdomen soft nontender bowel sounds are normoactive Lower extremities no clubbing cyanosis, nor edema appreciated bilaterally Problem\Assessment\Plan Problems/Diagnosis: (1) Suicidal ideation # schizophrenia # OCD # suicidal ideation Followed by Psychiatry # hyperlipidemia Start 40 mg of atorvastatin Monitor liver function tests/ CMP in 12 weeks # hypokalemia Resolved with a potassium replacement # leukocytosis with a mild left shift Repeat CBC no signs of acute infection The hospitalist service will continue to follow the patient Date of Service: Aug 23, 2025 Billing Provider: ROLAND LOPEZ DO Common Visit Codes: [id number] INP/OBS CARE(MOD) ROLAND LOPEZ DO Aug 23, 2025 14:24
[2025-08-23 19:00] VITALS: RESP 17; O2SAT 97
--- NOTE | 2025-08-23 19:40 | PROGRESS NOTE ---
Progress Note Dictate Providers to CC ~ Central Line/PICC still needed: N\\A Antibiotic Ordered?: No MRSA Education MRSA Education Provided to pt: No Objective Vitals Vital Signs Date Time Temp Pulse Resp B/P (MAP) Pulse Ox O2 Delivery O2 Flow Rate FiO2 08/23/25 08:00 97.2 64 16 123/80 (94) 99 Room Air 08/22/25 07:30 0.0 Lab Results: 08/22/25 1907 Problem\\Assessment\\Plan Problems/Diagnosis: (1) Schizophrenia (2) OCD (obsessive compulsive disorder) (3) Suicidal ideation Psychiatrist's Progress Note Date of Service: Aug 23, 2025 Notes CHART REVIEW Pt is a 55 year old single white male who was came into [facility] on a 5150 for DTS due to having a suicidal thoughts with a plan to jump out into traffic. Pt reports ongoing auditory hallucinations that have been interfering with sleep. He is intermittently engaged, however suggesting possible intellectual functioning impairment or disorganization related to psychosis. Pt reported that he can' sleep and the voices won't let me sleep and I don't have a home. ASSESSMENT The patient was interviewed in observation room. The patient was actively resting in bed with eyes closed. The patient endorses "I am really suicidal today." Patient denies a plan. Denies HI. Denies AVH. The patient endorses adequate sleep and food intake The patient is stable no acute distress noted. The patient presents as depressed and suicidal. Per staff report patient is medication compliant. Per staff report no abnormal behaviors. Will continue daily assessment and adjusting treatment as needed. Closely monitor behavior and response to medication during hospitalization. Results Of any Diagn. Testing REVIEW OF LABS WBC 12.1 RBC 5.00 HEMOGLOBIN 14.9 HEMATOCRIT 43.6 PLATELET 396 SODIUM 139 POTASSIUM 3.3 CHLORIDE 109 ANION GAP 8 BUN 12 CREATININE 0.94 EGFR 0.81 GLUCOSE 110 CALCIUM 8.6 ALBUMIN 3.7 TSH 2.87 URINALYSIS NEGATIVE URINE TOX SCREEN NEGATIVE Speech: Normal Eye Contact: Normal Motor Activity: Normal Affect: Constricted Mood: Depressed Orientation Impairment: None Memory Impairment: None Attention: Normal Hallucinations: None Other: None Suicidality: Ideation Homicidality: None Delusions: None Behavior: Cooperative Insight: Fair Judgment: Fair Treatment BUSPAR 30MG PO BID Increase CYMBALTA 90MG PO DAILY FLUVOXAMINE 50MG PO DAILY LAMITICAL 150MG PO DAILY RISPERIDONE 0.5MG PO QHS 5150 HOLD-DTS- Patient is unable to formulate a plan to safety. We are still titrating medications to an effective dose while maintaining a therapeutic environment to prevent decompensation and readmission. Monitoring by Staff, Milieu, Group, and Individual counseling as needed -- According to the [place] Suicide Assessment the above named patient is on Q15 MINUTE CHECKS. Total time spent 40 minutes on REVIEW OF Clinical notes [X ] RN notes [X] PCT documentation [X] SW notes Labs [ X] Medications [X] Care trends/care activity [X] Vitals [X] DISCUSSION WITH absorption plant operator helper [X] Staff SW Treatment Team [X] Discharge DISCHARGE TO [facility] ONCE STABLE CODING VISIT-PSYCHIATRY Date of Service: Aug 23, 2025 Billing Provider: BLAINE EDWARDS APRN Psych Common Visit Codes: [id number] INP/OBS CARE (Mod) Problem Qualifiers (1) Schizophrenia: Qualified Codes: F20.9 - Schizophrenia, unspecified BLAINE EDWARDS APRN Aug 23, 2025 19:40
[2025-08-23 20:00] VITALS: BP 124/75; PULSE 88; RESP 17; TEMP 96.9; O2SAT 97
[2025-08-24 06:52] LABS: MEAN PLATELET VOLUME 7.6 FL (7.4-10.4); RED CELL DISTRIBUTION WIDTH 14.6 % (11.5-14.5)
[2025-08-24 07:00] VITALS: RESP 17; O2SAT 97
[2025-08-24] MEDS: duloxetine 30mg CAPSULE.DR PO SCH (07:36)
[2025-08-24 08:00] VITALS: BP 126/74; PULSE 114; RESP 17; TEMP 97.8; O2SAT 97
--- NOTE | 2025-08-24 19:49 | PROGRESS NOTE ---
Progress Note Dictate Providers to CC ~ Central Line/PICC still needed: N\\A Antibiotic Ordered?: No MRSA Education MRSA Education Provided to pt: No Objective Vitals Vital Signs Date Time Temp Pulse Resp B/P (MAP) Pulse Ox O2 Delivery O2 Flow Rate FiO2 08/24/25 08:00 97.8 114 17 126/74 (91) 97 Room Air 08/22/25 07:30 0.0 Lab Results: 08/24/25 0619 08/24/25 0619 Problem\\Assessment\\Plan Problems/Diagnosis: (1) Schizophrenia (2) OCD (obsessive compulsive disorder) (3) Suicidal ideation Psychiatrist's Progress Note Date of Service: Aug 24, 2025 Notes CHART REVIEW Pt is a 55 year old single white male who was came into [facility] on a 5150 for DTS due to having a suicidal thoughts with a plan to jump out into traffic. Pt reports ongoing auditory hallucinations that have been interfering with sleep. He is intermittently engaged, however suggesting possible intellectual functioning impairment or disorganization related to psychosis. Pt reported that he can' sleep and the voices won't let me sleep and I don't have a home. ASSESSMENT The patient was interviewed in observation room. The patient was actively resting in bed with eyes closed. The patient endorses "I'm okay." Denies SI.Denies HI. Denies AVH. The patient endorses adequate sleep and food intake The patient is stable no acute distress noted. The patient presents as less depressed and cooperative. Per staff report patient is medication compliant. Per staff report no abnormal behaviors. Will continue daily assessment and adjusting treatment as needed. Closely monitor behavior and response to medication during hospitalization. Per social insurance specialist patient will have interview with [facility] today at 2pm. Results Of any Diagn. Testing REVIEW OF LABS WBC 12.1 RBC 5.00 HEMOGLOBIN 14.9 HEMATOCRIT 43.6 PLATELET 396 SODIUM 139 POTASSIUM 3.3 CHLORIDE 109 ANION GAP 8 BUN 12 CREATININE 0.94 EGFR 0.81 GLUCOSE 110 CALCIUM 8.6 ALBUMIN 3.7 TSH 2.87 URINALYSIS NEGATIVE URINE TOX SCREEN NEGATIVE Speech: Impoverished Eye Contact: Normal Motor Activity: Normal Affect: Constricted Orientation Impairment: None Memory Impairment: None Attention: Normal Hallucinations: None Other: None Suicidality: None Homicidality: None Delusions: None Behavior: Cooperative Insight: Fair Judgment: Fair Treatment BUSPAR 30MG PO BID CYMBALTA 90MG PO DAILY FLUVOXAMINE 50MG PO DAILY LAMITICAL 150MG PO DAILY RISPERIDONE 0.5MG PO QHS 5150 HOLD-DTS- Patient is unable to formulate a plan to safety. We are still titrating medications to an effective dose while maintaining a therapeutic environment to prevent decompensation and readmission. Monitoring by Staff, Milieu, Group, and Individual counseling as needed -- According to the [place] Suicide Assessment the above named patient is on Q15 MINUTE CHECKS. Total time spent 40 minutes on REVIEW OF Clinical notes [X ] RN notes [X] PCT documentation [X] SW notes Labs [ X] Medications [X] Care trends/care activity [X] Vitals [X] DISCUSSION WITH autocad draftsman [X] Staff SW Treatment Team [X] Discharge DISCHARGE TO [facility] ONCE STABLE CODING VISIT-PSYCHIATRY Date of Service: Aug 24, 2025 Billing Provider: BLAINE EDWARDS APRN Psych Common Visit Codes: [id number] INP/OBS CARE (Low) Problem Qualifiers (1) Schizophrenia: Qualified Codes: F20.9 - Schizophrenia, unspecified BLAINE EDWARDS APRN Aug 24, 2025 19:49
[2025-08-24 20:00] VITALS: BP 114/68; PULSE 82; RESP 16; TEMP 98.1; O2SAT 97
[2025-08-25 07:00] VITALS: RESP 16; O2SAT 97
[2025-08-25 08:00] VITALS: BP 101/58; PULSE 94; RESP 16; TEMP 97.9; O2SAT 97
--- NOTE | 2025-08-25 12:11 | PROGRESS NOTE- Residence ---
Progress Note - Resident Providers to CC Resident Creating Document: COYMORAIMA VETO, RES ~ Antibiotic Timeout Antibiotic Ordered?: No Subjective The patient was seen and examined at bedside today. He has no new complaints. He wanted a new pair of clothes. He said he was constipated but did not know when his last bowel movement was. Abdomen is soft and has milk of magnesia as needed. Objective Vital Signs Date Time Temp Pulse Resp B/P (MAP) Pulse Ox O2 Delivery O2 Flow Rate FiO2 08/25/25 08:00 97.9 94 16 101/58 (72) 97 Room Air 08/25/25 07:00 0.0 Result Diagram: 08/24/2561808/24/25618 General: Awake and Alert, no acute distress. HEENT: Conjunctiva pink, Sclera clear, Mucus Membranes moist. Neck: Supple without masses and tenderness. Resp: Unlabored. Lungs clear to auscultation bilaterally. Heart: Regular Rate and rhythm, normal S1 and S2 without murmur, rub or gallop. Abdomen: Soft and non tender no organomegaly Extremities: No cyanosis,clubbing or edema. Skin: Warm and Dry. Assessment Assessment A 55-year-old male with well known past medical history of schizophrenia and OCD. Patient reported that he has COPD but does not use any inhalers. Plan Plan # DTS, 5150 hold for SI # Possible Intellectual functioning impairment or disorganization # auditory hallucination from schizophrenia -manage as per psychiatric team # nonspecific neutrophilic leukocytosis, resolved Labs reviewed. Unremarkable. Continue to monitor. # electrolyte imbalances-hypokalemia, resolved Continue to monitor CMP. # hyperlipidemia # hyperglycemia -HGB A1c 6 -normal thyroid function -LDL 131, patient on atorvastatin 40 mg. Disposition: Hospitalist team will continue to follow the patient during the course of his hospital stay. Moraima Cespedes MD Internal Medicine Resident, PGY-2 The patient was seen, examined and discussed with the attending physician, Dr. Casanova. Date of Service: Aug 25, 2025 Billing Provider: BOWEN CASANOVA MD Common Visit Codes: [id number] INP/OBS CARE(LOW) MORAIMA CESPEDES, TONE Aug 25, 2025 12:11 BOWEN CASANOVA MD Aug 25, 2025 18:41
--- NOTE | 2025-08-25 14:39 | PROGRESS NOTE ---
Progress Note Dictate Providers to CC ~ Central Line/PICC still needed: N\\A Antibiotic Ordered?: No MRSA Education MRSA Education Provided to pt: No Objective Vitals Vital Signs Date Time Temp Pulse Resp B/P (MAP) Pulse Ox O2 Delivery O2 Flow Rate FiO2 08/25/25 08:00 97.9 94 16 101/58 (72) 97 Room Air 08/25/25 07:00 0.0 Lab Results: 08/24/25 0619 08/24/25 0619 Problem\\Assessment\\Plan Problems/Diagnosis: (1) Schizophrenia (2) OCD (obsessive compulsive disorder) (3) Suicidal ideation Psychiatrist's Progress Note Date of Service: Aug 25, 2025 Notes CHART REVIEW Pt is a 55 year old single white male who was came into [facility] on a 5150 for DTS due to having a suicidal thoughts with a plan to jump out into traffic. Pt reports ongoing auditory hallucinations that have been interfering with sleep. He is intermittently engaged, however suggesting possible intellectual functioning impairment or disorganization related to psychosis. Pt reported that he can' sleep and the voices won't let me sleep and I don't have a home. ASSESSMENT The patient was interviewed in observation room. The patient was actively ambulating in room. The patient endorses "alright." Denies SI.Denies HI. Denies AVH. The patient endorses adequate sleep and food intake The patient is stable no acute distress noted. The patient presents as calm and cooperative. Per staff report patient is medication compliant. Per staff report no abnormal behaviors. Will continue daily assessment and adjusting treatment as needed. Closely monitor behavior and response to medication during hospitalization. Results Of any Diagn. Testing REVIEW OF LABS WBC 12.1 RBC 5.00 HEMOGLOBIN 14.9 HEMATOCRIT 43.6 PLATELET 396 SODIUM 139 POTASSIUM 3.3 CHLORIDE 109 ANION GAP 8 BUN 12 CREATININE 0.94 EGFR 0.81 GLUCOSE 110 CALCIUM 8.6 ALBUMIN 3.7 TSH 2.87 URINALYSIS NEGATIVE URINE TOX SCREEN NEGATIVE Speech: Impoverished Eye Contact: Normal Motor Activity: Normal Affect: Full Orientation Impairment: None Memory Impairment: None Attention: Normal Hallucinations: None Other: None Suicidality: None Homicidality: None Delusions: None Behavior: Cooperative Insight: Fair Judgment: Fair Treatment BUSPAR 30MG PO BID CYMBALTA 90MG PO DAILY FLUVOXAMINE 50MG PO DAILY LAMITICAL 150MG PO DAILY RISPERIDONE 0.5MG PO QHS VOLUNTARY Monitoring by Staff, Milieu, Group, and Individual counseling as needed -- According to the [place] Suicide Assessment the above named patient is on Q15 MINUTE CHECKS. Total time spent 30 minutes on REVIEW OF Clinical notes [X ] RN notes [X] PCT documentation [X] SW notes Labs [ X] Medications [X] Care trends/care activity [X] Vitals [X] DISCUSSION WITH catering truck operator [X] Staff SW Treatment Team [X] [facility] STABLE CODING VISIT-PSYCHIATRY Date of Service: Aug 25, 2025 Billing Provider: BLAINE EDWARDS APRN Psych Common Visit Codes: 77331-FAI/OBS SAME DATE (Low) Problem Qualifiers (1) Schizophrenia: Qualified Codes: F20.9 - Schizophrenia, unspecified BLAINE EDWARDS APRN Aug 25, 2025 14:39
[2025-08-25 20:00] VITALS: BP 117/67; PULSE 90; RESP 16; TEMP 98.2; O2SAT 95
[2025-08-26 07:00] VITALS: RESP 16; O2SAT 98
[2025-08-26 08:00] VITALS: BP 130/84; PULSE 98; RESP 16; TEMP 97.6; O2SAT 97
[2025-08-26 19:00] VITALS: RESP 18; O2SAT 96
[2025-08-26 20:00] VITALS: BP 102/59; PULSE 82; RESP 18; TEMP 98.1; O2SAT 96
[2025-08-27 07:30] VITALS: BP 130/71; PULSE 84; RESP 16; TEMP 97.1; O2SAT 96
[2025-08-27] MEDS: docusate sod 100mg capsule PO ONE (12:48)
[2025-08-27 19:00] VITALS: RESP 16; O2SAT 96
--- NOTE | 2025-08-27 19:00 | PROGRESS NOTE- Residence ---
Progress Note - Resident Providers to CC Resident Creating Document: CHANTAL LARIOS RES ~ Antibiotic Timeout Antibiotic Ordered?: No Subjective The patient was seen and examined at bedside today. Reported that his last bowel movement was two weeks ago. On reviewing nurse records the last bowel movement was on August 24. Objective Vital Signs Date Time Temp Pulse Resp B/P (MAP) Pulse Ox O2 Delivery O2 Flow Rate FiO2 08/27/25 07:30 97.1 84 16 130/71 (90) 96 Room Air 0.0 Result Diagram: 08/24/2561808/24/25618 Assessment Assessment A 55-year-old male with well known past medical history of schizophrenia and OCD. Patient reported that he has COPD but does not use any inhalers. Plan Plan # DTS, 5150 hold for SI # Possible Intellectual functioning impairment or disorganization # auditory hallucination from schizophrenia -manage as per psychiatric team # nonspecific neutrophilic leukocytosis, resolved Labs reviewed. Unremarkable. Continue to monitor. # electrolyte imbalances-hypokalemia, resolved Continue to monitor CMP. # hyperlipidemia # hyperglycemia -HGB A1c 6 -normal thyroid function -LDL 131, patient on atorvastatin 40 mg. Constipation Last bowel movement August 24 Milk of Mag PRN, docusate 100 mg p.o. b.i.d. Disposition: Hospitalist team will continue to follow the patient during the course of his hospital stay. Chantal larios M.D PGY2 The patient was seen, examined and discussed with the attending physician, Dr. Zhang Date of Service: Aug 27, 2025 Billing Provider: EDINSON ZHANG MD Common Visit Codes: [id number] INP/OBS CARE(MOD) CHANTAL LARIOS RES Aug 27, 2025 19:00 EDINSON ZHANG MD Aug 28, 2025 06:46
[2025-08-27 20:00] VITALS: BP 124/77; PULSE 77; RESP 16; TEMP 98; O2SAT 96
[2025-08-27] MEDS: docusate sod 100mg capsule PO SCH (20:03)
--- NOTE | 2025-08-27 22:33 | PROGRESS NOTE ---
Progress Note Dictate Providers to CC ~ Central Line/PICC still needed: N\\A Antibiotic Ordered?: No MRSA Education MRSA Education Provided to pt: No Objective Vitals Vital Signs Date Time Temp Pulse Resp B/P (MAP) Pulse Ox O2 Delivery O2 Flow Rate FiO2 08/27/25 07:30 97.1 84 16 130/71 (90) 96 Room Air 0.0 Lab Results: 08/24/25 0619 08/24/25 06 Problem\\Assessment\\Plan Problems/Diagnosis: (1) Schizophrenia (2) OCD (obsessive compulsive disorder) (3) Suicidal ideation Psychiatrist's Progress Note Date of Service: Aug 27, 2025 Notes CHART REVIEW Pt is a 55 year old single white male who was came into [facility] on a 5150 for DTS due to having a suicidal thoughts with a plan to jump out into traffic. Pt reports ongoing auditory hallucinations that have been interfering with sleep. He is intermittently engaged, however suggesting possible intellectual functioning impairment or disorganization related to psychosis. Pt reported that he can' sleep and the voices won't let me sleep and I don't have a home. ASSESSMENT The patient was interviewed in observation room. The patient was actively ambulating in hallway. The patient endorses "good." Denies SI.Denies HI. Denies AVH. The patient endorses adequate sleep and food intake The patient is stable no acute distress noted. The patient presents as calm and cooperative. Per staff report patient is medication compliant. Per staff report no abnormal behaviors. Will continue daily assessment and adjusting treatment as needed. Closely monitor behavior and response to medication during hospitalization. Results Of any Diagn. Testing REVIEW OF LABS WBC 12.1 RBC 5.00 HEMOGLOBIN 14.9 HEMATOCRIT 43.6 PLATELET 396 SODIUM 139 POTASSIUM 3.3 CHLORIDE 109 ANION GAP 8 BUN 12 CREATININE 0.94 EGFR 0.81 GLUCOSE 110 CALCIUM 8.6 ALBUMIN 3.7 TSH 2.87 URINALYSIS NEGATIVE URINE TOX SCREEN NEGATIVE Speech: Normal Eye Contact: Normal Motor Activity: Normal Affect: Full Orientation Impairment: None Memory Impairment: None Attention: Normal Hallucinations: None Other: None Suicidality: None Homicidality: None Delusions: None Behavior: Cooperative Insight: Fair Judgment: Fair Treatment BUSPAR 30MG PO BID CYMBALTA 90MG PO DAILY FLUVOXAMINE 50MG PO DAILY LAMITICAL 150MG PO DAILY RISPERIDONE 0.5MG PO QHS VOLUNTARY Monitoring by Staff, Milieu, Group, and Individual counseling as needed -- According to the [place] Suicide Assessment the above named patient is on Q15 MINUTE CHECKS. Total time spent 30 minutes on REVIEW OF Clinical notes [X ] RN notes [X] PCT documentation [X] SW notes Labs [ X] Medications [X] Care trends/care activity [X] Vitals [X] DISCUSSION WITH lidar analyst [X] Staff SW Treatment Team [X] Discharge DISCHARGE TO [facility] ONCE STABLE CODING VISIT-PSYCHIATRY Date of Service: Aug 27, 2025 Billing Provider: BLAINE EDWARDS APRN Psych Common Visit Codes: [id number] INP/OBS CARE(Low) Problem Qualifiers (1) Schizophrenia: Qualified Codes: F20.9 - Schizophrenia, unspecified BLAINE EDWARDS APRN Aug 27, 2025 22:33
--- NOTE | 2025-08-27 22:37 | PROGRESS NOTE ---
Progress Note Dictate Providers to CC ~ Central Line/PICC still needed: N\\A Antibiotic Ordered?: No MRSA Education MRSA Education Provided to pt: No Objective Vitals Vital Signs Date Time Temp Pulse Resp B/P (MAP) Pulse Ox O2 Delivery O2 Flow Rate FiO2 08/27/25 07:30 97.1 84 16 130/71 (90) 96 Room Air 0.0 Lab Results: 08/24/25 0619 08/24/25 06 Problem\\Assessment\\Plan Problems/Diagnosis: (1) Schizophrenia (2) OCD (obsessive compulsive disorder) (3) Suicidal ideation Psychiatrist's Progress Note Date of Service: Aug 26, 2025 Notes CHART REVIEW Pt is a 55 year old single white male who was came into [facility] on a 5150 for DTS due to having a suicidal thoughts with a plan to jump out into traffic. Pt reports ongoing auditory hallucinations that have been interfering with sleep. He is intermittently engaged, however suggesting possible intellectual functioning impairment or disorganization related to psychosis. Pt reported that he can' sleep and the voices won't let me sleep and I don't have a home. ASSESSMENT The patient was interviewed in observation room. The patient was actively ambulating in hallway. The patient endorses "I'm good." Denies SI. Denies HI. Denies AVH. The patient endorses adequate sleep and food intake The patient is stable no acute distress noted. The patient presents as calm and cooperative. Per staff report patient is medication compliant. Per staff report no abnormal behaviors. Will continue daily assessment and adjusting treatment as needed. Closely monitor behavior and response to medication during Results Of any Diagn. Testing REVIEW OF LABS WBC 12.1 RBC 5.00 HEMOGLOBIN 14.9 HEMATOCRIT 43.6 PLATELET 396 SODIUM 139 POTASSIUM 3.3 CHLORIDE 109 ANION GAP 8 BUN 12 CREATININE 0.94 EGFR 0.81 GLUCOSE 110 CALCIUM 8.6 ALBUMIN 3.7 TSH 2.87 URINALYSIS NEGATIVE URINE TOX SCREEN NEGATIVE Speech: Normal Eye Contact: Normal Motor Activity: Normal Affect: Full Orientation Impairment: None Memory Impairment: None Attention: Normal Hallucinations: None Other: None Suicidality: None Homicidality: None Delusions: None Behavior: Cooperative Insight: Fair Judgment: Fair Treatment BUSPAR 30MG PO BID CYMBALTA 90MG PO DAILY FLUVOXAMINE 50MG PO DAILY LAMITICAL 150MG PO DAILY RISPERIDONE 0.5MG PO QHS VOLUNTARY Monitoring by Staff, Milieu, Group, and Individual counseling as needed -- According to the [place] Suicide Assessment the above named patient is on Q15 MINUTE CHECKS. Total time spent 30 minutes on REVIEW OF Clinical notes [X ] RN notes [X] PCT documentation [X] SW notes Labs [ X] Medications [X] Care trends/care activity [X] Vitals [X] DISCUSSION WITH key operator [X] Staff SW Treatment Team [X] Discharge DISCHARGE TO [facility] ONCE STABLE CODING VISIT-PSYCHIATRY Date of Service: Aug 26, 2025 Billing Provider: BLAINE EDWARDS APRN Psych Common Visit Codes: [id number] INP/OBS CARE(Low) Problem Qualifiers (1) Schizophrenia: Qualified Codes: F20.9 - Schizophrenia, unspecified BLAINE EDWARDS APRN Aug 27, 2025 22:37
[2025-08-28 07:30] VITALS: BP 128/79; PULSE 110; RESP 16; TEMP 97.5; O2SAT 98
--- NOTE | 2025-08-28 11:22 | ELECTROCARDIOGRAPH REPORT ---
[facility] Test Date: 2025-08-28 Test Time: 11:19:09 Pat Name: MONI GARCIA Department: [facility]-ADULT Patient ID: [facility]-[id number] Room: 324 B Gender: M Bolt Sawyer: : 1970 Requested By: ANTONIO GONZALEZ Order Number: [id number] Reading MD: Dr. MARIA ESTHER Holloway Measurements Intervals [place] Rate: 80 P: 69 VA: 164 QRS: 61 QRSD: 80 T: 64 QT: 379 QTc: 438 Interpretive Statements Sinus rhythm Abnormal R-wave progression, early transition Electronically Signed On 08-28-2025 12:58:[address] MARIA ESTHER Holloway Please click the below link to view image of tracing.
[2025-08-28 19:00] VITALS: RESP 16; O2SAT 98
[2025-08-28 20:00] VITALS: BP 104/74; PULSE 87; RESP 16; TEMP 98.3; O2SAT 98
[2025-08-28] MEDS: busPIRone 15mg tablet PO SCH (20:24)
--- NOTE | 2025-08-28 20:52 | PROGRESS NOTE ---
Progress Note Dictate Providers to CC ~ Progress Note: Admission date: 08/18/25 Status: VOL HPI: Admitted for danger to self due without the suicide plan to jump out into traffic, endorses hallucinations that have been interfering with sleep. Psychiatric History: Age of initial treatment: initial treatment in his 20s Outpatient: [facility] Inpatient: estimates more than 10 inpatient admission Historical Diagnoses (w/year): OCD, schizophrenia Hx of suicide attempts: x1- age 15 Hx of self-harm: denies Hx of violence: denies Legal hx: denies Historical Psych Medications Substances use history: hx of methamphetamine use disorder (since adolescence, last use was 6 months ago), hx of alcohol use disorder (since adolescence, estimates he quit 5 years ago), denies hx of marijuana use, endorses current ciggarette use Social history: Grew up in [place], graduated high school, raised by mother, has a younger brother. Mother supportive. Has been in [place] for the past 30 years, has been on disability for his mental illness for the majority of his life. Is currently homeless. Today on Assessment: Per nursing staff- delusions that people can read his thoughts, Psychiatric Medications: Olanzapine Lamotrigine Fluvoxamine Buspirone Duloxetine Side Effects: Denies AIMs: Tardive Dyskinesia- (present for many years). Review of Psychiatric Symptoms: Mood: mild depression Suicide/self-harm: endorses, "I hope god just takes me" passive SI Sleep: 6 hours Appetite: TID- good appetite Energy: poor- reports he is tired all the time Anxiety: high- OCD Irritability: denies Homicidal/Anger: denies Hallucinations/Paranoia: Delusions of being tortured Trauma symptoms: endorses nightmares Symptoms related to substance withdrawal: denies Mental Status Evaluation General Appearance: poorly groomed, Eye contact: intermittent, poor, avoidant Demeanor: cooperative, pleasant Orientation: to person, place, time, situation Speech: Appropriate rate/rhythm/volume Psychomotor Activity: restless Abnormal Body Movements: present Mood: depressed Affect: constricted Suicidality: denies suicidal ideation Homicidally: denies Thought content: consistent with social norms Thought process: logical, linear Thought perceptions: auditory hallucinations Attention: appear attentive Insight: good Judgment: good - Current Medical Problems: Constipation Hyperlipidemia Hyperglycemia Medical History TBI Hx: denies Seizure Hx: denies JAYLON Hx: denies - - Diagnoses Schizophrenia Tardive Dyskenisia Polypharmacy - Assessment Based on initial evaluation, including interview and history obtained today, patient appears to meet criteria for schizophrenia, he endorses OCD symptoms as well as AH contributed to hospitalization. Will taper off excessive antidepressants. Will continue olanzapine for schizophrenia. - Safety risk: low risk of imminent self-harm, low risk of externalized violent behaviors Plan Continue Fluvoxamine Taper off Duloxetine Continue Lamotrigine Continue Olanzapine Taper off Buspirone Continue Q15 min checks Continue Groups/Milieu Engagement Discharge Plan: [facility] to home with scheduled follow ups for outpatient therapy and medication management Access to firearms: Spent approximately 45 minutes reviewing records and test results, assessing and treatment planning, completing care coordination and documenting the encounter. Discussed risks, including possible adverse effects, and benefits of treatment recommendations including no treatment. Voice recognition software may have been used to dictate this note. There may be errors due to use of such software. Reporting of serious errors is appreciated. Antibiotic Ordered?: No Objective Vitals Vital Signs Date Time Temp Pulse Resp B/P (MAP) Pulse Ox O2 Delivery O2 Flow Rate FiO2 08/28/25 07:30 97.5 110 16 128/79 (95) 98 Room Air 0.0 Lab Results: 08/24/25 0619 08/24/25 0619 CODING VISIT-PSYCHIATRY Date of Service: Aug 28, 2025 Billing Provider: ANTONIO GONZALEZ DNP Psych Common Visit Codes: [id number] INP/OBS CARE(Mod) ANTONIO GONZALEZ DNP Aug 28, 2025 20:52
[2025-08-29 08:00] VITALS: BP 115/88; PULSE 79; RESP 16; TEMP 98.3; O2SAT 99
[2025-08-29] MEDS: duloxetine 30mg CAPSULE.DR PO SCH (08:44)
[2025-08-29 08:48] VITALS: RESP 16; O2SAT 98
[2025-08-29 14:51] LABS: MEAN PLATELET VOLUME 7.4 FL (7.4-10.4); RED CELL DISTRIBUTION WIDTH 15.4 % (11.5-14.5)
[2025-08-29 15:01] LABS: CREATININE 0.92 MG/DL (0.60-1.10); TOTAL CARBON DIOXIDE 25.7 MMOL/L (24-32); eCRCL 83 ML/MIN; eGFR 86 ML/MIN
--- NOTE | 2025-08-29 18:24 | PROGRESS NOTE ---
Daily Progress Note Providers to CC ~ Antibiotic Timeout Antibiotic Ordered?: No Subjective This is the hospitalist progress note on patients hospitalized at [facility]. The patient has no acute medical complaints or concerns and none were voiced by nursing staff Objective Vital Signs Date Time Temp Pulse Resp B/P (MAP) Pulse Ox O2 Delivery O2 Flow Rate FiO2 08/29/25 08:48 16 98 Room Air 08/29/25 08:00 98.3 79 115/88 (97) 08/28/25 20:00 0.0 Result Diagram: 08/29/25142208/29/251422 Gen. No acute distress alert and oriented Lungs clear to ascultation bilaterally, no wheezes rales or rhonchi appreciated Heart normal sinus rhythm no murmurs rubs or clicks noted Abdomen soft nontender bowel sounds are normoactive Lower extremities no clubbing cyanosis, nor edema appreciated bilaterally Problem\Assessment\Plan Problems/Diagnosis: (1) Suicidal ideation # schizophrenia # OCD # suicidal ideation Followed by Psychiatry # hyperlipidemia Start 40 mg of atorvastatin Monitor liver function tests/ CMP in 12 weeks # hypokalemia Resolved with a potassium replacement # leukocytosis with a mild left shift Repeat CBC white blood cell count has normalized, The hospitalist service will continue to follow the patient Date of Service: Aug 29, 2025 Billing Provider: ROLAND LOPEZ DO Common Visit Codes: [id number] INP/OBS CARE(LOW) ROLAND LOPEZ DO Aug 29, 2025 18:24
[2025-08-29 19:00] VITALS: RESP 16; O2SAT 95
[2025-08-29 20:00] VITALS: BP 108/70; PULSE 73; RESP 16; TEMP 98.5; O2SAT 95
[2025-08-29] MEDS: polyethylene glycol 3350 17gm powd pack PO SCH (20:01)
--- NOTE | 2025-08-29 20:26 | PROGRESS NOTE ---
Progress Note Dictate Providers to CC ~ Progress Note: Admission date: 08/18/25 Status: VOL HPI: Admitted for danger to self due without the suicide plan to jump out into traffic, endorses hallucinations that have been interfering with sleep. Psychiatric History: Age of initial treatment: initial treatment in his 20s Outpatient: [facility] Inpatient: estimates more than 10 inpatient admission Historical Diagnoses (w/year): OCD, schizophrenia Hx of suicide attempts: x1- age 15 Hx of self-harm: denies Hx of violence: denies Legal hx: denies Historical Psych Medications Substances use history: hx of methamphetamine use disorder (since adolescence, last use was 6 months ago), hx of alcohol use disorder (since adolescence, estimates he quit 5 years ago), denies hx of marijuana use, endorses current ciggarette use Social history: Grew up in [place], graduated high school, raised by mother, has a younger brother. Mother supportive. Has been in [place] for the past 30 years, has been on disability for his mental illness for the majority of his life. Is currently homeless. Today on Assessment: Withdrawn to room, depressed, persistent delusions Psychiatric Medications: Olanzapine Lamotrigine Fluvoxamine Buspirone Duloxetine Side Effects: Denies AIMs: Tardive Dyskinesia- (present for many years). Review of Psychiatric Symptoms: Mood: mild depression Suicide/self-harm: endorses, "I hope god just takes me" passive SI Sleep: 8 hours Appetite: TID- good appetite Energy: poor- reports he is tired all the time Anxiety: high- OCD Irritability: denies Homicidal/Anger: denies Hallucinations/Paranoia: Delusions of being tortured Trauma symptoms: endorses nightmares Symptoms related to substance withdrawal: denies Mental Status Evaluation General Appearance: poorly groomed, Eye contact: intermittent, poor, avoidant Demeanor: cooperative, pleasant Orientation: to person, place, time, situation Speech: Appropriate rate/rhythm/volume Psychomotor Activity: restless Abnormal Body Movements: present Mood: depressed Affect: constricted Suicidality: denies suicidal ideation Homicidally: denies Thought content: consistent with social norms Thought process: logical, linear Thought perceptions: auditory hallucinations Attention: appear attentive Insight: good Judgment: good - Current Medical Problems: Constipation Hyperlipidemia Hyperglycemia Medical History TBI Hx: denies Seizure Hx: denies JAYLON Hx: denies - - Diagnoses Schizophrenia OCD Tardive Dyskenisia Polypharmacy - Assessment Femi presents for further evaluation and treatment for schizophrenia, he endorses OCD symptoms as well as AH contributed to hospitalization. Will taper off excessive antidepressants. Will titrate fluvoxamine as primary treatment of OCD. Will continue olanzapine for schizophrenia. - Safety risk: low risk of imminent self-harm, low risk of externalized violent behaviors Plan Increase Fluvoxamine from 50 to 100 mg Continue Lamotrigine Continue Olanzapine Discontinue Buspirone Discontinue Duloxetine Continue Q15 min checks Continue Groups/Milieu Engagement Discharge Plan: [facility] to home with scheduled follow ups for outpatient therapy and medication management Access to firearms: Spent approximately 30 minutes reviewing records and test results, assessing and treatment planning, completing care coordination and documenting the encounter. Discussed risks, including possible adverse effects, and benefits of treatment recommendations including no treatment. Voice recognition software may have been used to dictate this note. There may be errors due to use of such software. Reporting of serious errors is appreciated. Antibiotic Ordered?: No Objective Vitals Vital Signs Date Time Temp Pulse Resp B/P (MAP) Pulse Ox O2 Delivery O2 Flow Rate FiO2 08/29/25 08:48 16 98 Room Air 08/29/25 08:00 98.3 79 115/88 (97) 08/28/25 20:00 0.0 Lab Results: 08/29/25 1423 08/29/25 1423 CODING VISIT-PSYCHIATRY Date of Service: Aug 29, 2025 Billing Provider: ANTONIO GONZALEZ DNP Psych Common Visit Codes: [id number] INP/OBS CARE(Low) ANTONIO GONZALEZ DNP Aug 29, 2025 20:26
[2025-08-30 07:00] VITALS: RESP 16; O2SAT 96
[2025-08-30 08:00] VITALS: BP 108/58; PULSE 66; RESP 16; TEMP 97; O2SAT 96
[2025-08-30] MEDS: fluvoxamine 25 MG tablet PO SCH (08:17)
[2025-08-30 19:00] VITALS: RESP 16; O2SAT 95
[2025-08-30 20:00] VITALS: BP 107/47; PULSE 70; RESP 16; TEMP 98.4; O2SAT 95
--- NOTE | 2025-08-30 20:22 | PROGRESS NOTE ---
Progress Note Dictate Providers to CC ~ Progress Note: Admission date: 08/18/25 Status: VOL HPI: Admitted for danger to self due without the suicide plan to jump out into traffic, endorses hallucinations that have been interfering with sleep. Psychiatric History: Age of initial treatment: initial treatment in his 20s Outpatient: [facility] Inpatient: estimates more than 10 inpatient admission Historical Diagnoses (w/year): OCD, schizophrenia Hx of suicide attempts: x1- age 15 Hx of self-harm: denies Hx of violence: denies Legal hx: denies Historical Psych Medications Substances use history: hx of methamphetamine use disorder (since adolescence, last use was 6 months ago), hx of alcohol use disorder (since adolescence, estimates he quit 5 years ago), denies hx of marijuana use, endorses current ciggarette use Social history: Grew up in [place], graduated high school, raised by mother, has a younger brother. Mother supportive. Has been in [place] for the past 30 years, has been on disability for his mental illness for the majority of his life. Is currently homeless for the past 8 months. Today on Assessment: "I am insitutionalized" "meth ruined my life" states he been sober for years Psychiatric Medications: Olanzapine Lamotrigine Fluvoxamine Buspirone Duloxetine Side Effects: Denies AIMs: Tardive Dyskinesia- (present for many years). Review of Psychiatric Symptoms: Mood: denies feeling depressed Suicide/self-harm: endorses, "I hope god just takes me" passive SI Sleep: 8 hours Appetite: TID- good appetite Energy: poor- reports he is tired all the time Anxiety: high- OCD, feels restless Irritability: endorses Homicidal/Anger: denies Hallucinations/Paranoia: Delusions of being tortured Trauma symptoms: endorses nightmares Symptoms related to substance withdrawal: denies Mental Status Evaluation General Appearance: poorly groomed, Eye contact: intermittent, poor, avoidant Demeanor: cooperative, pleasant Orientation: to person, place, time, situation Speech: Appropriate rate/rhythm/volume Psychomotor Activity: restless Abnormal Body Movements: present Mood: depressed Affect: constricted Suicidality: denies suicidal ideation Homicidally: denies Thought content: consistent with social norms Thought process: logical, linear Thought perceptions: auditory hallucinations Attention: appear attentive Insight: good Judgment: good - Current Medical Problems: Constipation Hyperlipidemia Hyperglycemia Medical History TBI Hx: denies Seizure Hx: denies JAYLON Hx: denies - - Diagnoses Schizophrenia OCD Tardive Dyskenisia Polypharmacy - Assessment Femi presents for further evaluation and treatment for schizophrenia, he endorses OCD symptoms as well as AH contributed to hospitalization. Will taper off excessive antidepressants. Will titrate fluvoxamine as primary treatment of OCD. Will continue olanzapine for schizophrenia. 08/30: remains highly anxious and depressed. Psychotic symptoms not overt and well managed with current medication regimen. - Safety risk: low risk of imminent self-harm, low risk of externalized violent behaviors Plan Start MiraLAX for constipation QHS Continue Fluvoxamine 100 mg Continue Lamotrigine Continue Olanzapine Continue Q15 min checks Continue Groups/Milieu Engagement Discharge Plan: [facility] to home with scheduled follow ups for outpatient therapy and medication management Access to firearms: Spent approximately 30 minutes reviewing records and test results, assessing and treatment planning, completing care coordination and documenting the encounter. Discussed risks, including possible adverse effects, and benefits of treatment recommendations including no treatment. Voice recognition software may have been used to dictate this note. There may be errors due to use of such software. Reporting of serious errors is appreciated. Antibiotic Ordered?: No Objective Vitals Vital Signs Date Time Temp Pulse Resp B/P (MAP) Pulse Ox O2 Delivery O2 Flow Rate FiO2 08/30/25 08:00 97.0 66 16 108/58 (75) 96 Room Air 08/29/25 20:00 0.0 Lab Results: 08/29/25 1423 08/29/25 1423 CODING VISIT-PSYCHIATRY Date of Service: Aug 30, 2025 Billing Provider: ANTONIO GONZALEZ DNP Psych Common Visit Codes: [id number] INP/OBS CARE(Low) ANTONIO GONZALEZ DNP Aug 30, 2025 20:22
[2025-08-30] MEDS: polyethylene glycol 3350 17gm powd pack PO SCH (20:36)
[2025-08-31 07:00] VITALS: RESP 12; O2SAT 96
[2025-08-31 07:34] VITALS: BP 112/67; PULSE 69; RESP 12; TEMP 97.6; O2SAT 96
--- NOTE | 2025-08-31 10:43 | PROGRESS NOTE ---
Progress Note Dictate Providers to CC ~ Central Line/PICC still needed: N\\A Antibiotic Ordered?: No MRSA Education MRSA Education Provided to pt: No Objective Vitals Vital Signs Date Time Temp Pulse Resp B/P (MAP) Pulse Ox O2 Delivery O2 Flow Rate FiO2 08/31/25 07:34 97.6 69 12 112/67 (82) 96 Room Air 08/29/25 20:00 0.0 Lab Results: 08/29/25 1423 08/29/25 1423 Problem\\Assessment\\Plan Problems/Diagnosis: (1) Schizophrenia (2) OCD (obsessive compulsive disorder) (3) Suicidal ideation Psychiatrist's Progress Note Date of Service: Aug 31, 2025 Notes CHART REVIEW Pt is a 55 year old single white male who was came into [facility] on a 5150 for DTS due to having a suicidal thoughts with a plan to jump out into traffic. Pt reports ongoing auditory hallucinations that have been interfering with sleep. He is intermittently engaged, however suggesting possible intellectual functioning impairment or disorganization related to psychosis. Pt reported that he can' sleep and the voices won't let me sleep and I don't have a home. ASSESSMENT The patient was interviewed in observation room. The patient was actively sitting in rec room visiting with his mom. The patient endorses "Okay." Denies SI. Denies HI. Denies AVH. The patient endorses adequate sleep and food intake The patient is stable no acute distress noted. The patient presents as calm and cooperative. Per staff report patient is medication compliant. Per staff report no abnormal behaviors. Will continue daily assessment and adjusting treatment as needed. Closely monitor behavior and response to medication during Results Of any Diagn. Testing REVIEW OF LABS WBC 12.1 RBC 5.00 HEMOGLOBIN 14.9 HEMATOCRIT 43.6 PLATELET 396 SODIUM 139 POTASSIUM 3.3 CHLORIDE 109 ANION GAP 8 BUN 12 CREATININE 0.94 EGFR 0.81 GLUCOSE 110 CALCIUM 8.6 ALBUMIN 3.7 TSH 2.87 URINALYSIS NEGATIVE URINE TOX SCREEN NEGATIVE Speech: Normal Eye Contact: Normal Motor Activity: Normal Affect: Constricted Orientation Impairment: None Memory Impairment: None Attention: Normal Hallucinations: None Other: None Suicidality: None Homicidality: None Delusions: None Behavior: Cooperative Insight: Fair Judgment: Fair Treatment FLUVOXAMINE 50MG PO DAILY LAMITICAL 150MG PO DAILY ZYPREXA 20MG PO QHS VOLUNTARY Monitoring by Staff, Milieu, Group, and Individual counseling as needed -- According to the [facility] Suicide Assessment the above named patient is on Q15 MINUTE CHECKS. Total time spent 40 minutes on REVIEW OF Clinical notes [X ] RN notes [X] PCT documentation [X] SW notes Labs [ X] Medications [X] Care trends/care activity [X] Vitals [X] DISCUSSION WITH bottle washing machine operator [X] Staff SW Treatment Team [X] Discharge DISCHARGE TO [facility] ONCE STABLE CODING VISIT-PSYCHIATRY Date of Service: Aug 31, 2025 Billing Provider: BLAINE EDWARDS APRN Psych Common Visit Codes: [id number] INP/OBS CARE(Low) Problem Qualifiers (1) Schizophrenia: Qualified Codes: F20.9 - Schizophrenia, unspecified BLAINE EDWARDS APRN Aug 31, 2025 10:43
--- NOTE | 2025-08-31 17:34 | PROGRESS NOTE ---
Daily Progress Note Providers to CC ~ Antibiotic Timeout Antibiotic Ordered?: No Subjective This is the hospitalist progress note on patients hospitalized at [facility] [place] [facility]. The patient has no acute medical complaints and was interested on how has blood work looked- I informed the patient that has labs were reassuring there was no concerning labs present. The patient spent some time telling me that methamphetamines wound in his life Objective Vital Signs Date Time Temp Pulse Resp B/P (MAP) Pulse Ox O2 Delivery O2 Flow Rate FiO2 08/31/25 07:34 97.6 69 12 112/67 (82) 96 Room Air 08/31/25 07:00 0.0 Result Diagram: 08/29/25 14208/29/25 142 Gen. No acute distress alert and oriented Lungs clear to ascultation bilaterally, no wheezes rales or rhonchi appreciated Heart normal sinus rhythm no murmurs rubs or clicks noted Abdomen soft nontender bowel sounds are normoactive Lower extremities no clubbing cyanosis, nor edema appreciated bilaterally Problem\Assessment\Plan Problems/Diagnosis: (1) Suicidal ideation # schizophrenia # OCD # suicidal ideation Followed by Psychiatry # hyperlipidemia Start 40 mg of atorvastatin Monitor liver function tests/ CMP in 12 weeks # hypokalemia Resolved with a potassium replacement # leukocytosis with a mild left shift Repeat CBC white blood cell count has normalized, No acute medical complaints or concerns The hospitalist service will continue to follow the patient Date of Service: Aug 31, 2025 Billing Provider: ROLAND LOPEZ DO Common Visit Codes: [id number] INP/OBS CARE(LOW) ROLAND LOPEZ DO Aug 31, 2025 17:34
[2025-08-31 20:00] VITALS: BP 151/88; PULSE 98; RESP 18; TEMP 98.4; O2SAT 95
[2025-09-01 07:00] VITALS: RESP 16; O2SAT 95
[2025-09-01 08:00] VITALS: RESP 14
[2025-09-01 09:24] VITALS: BP 124/86; PULSE 92; RESP 16; TEMP 98; O2SAT 95
[2025-09-01 19:00] VITALS: RESP 18; O2SAT 98
[2025-09-01 20:00] VITALS: BP 107/57; PULSE 69; RESP 18; TEMP 97.3; O2SAT 98
[2025-09-01] MEDS: OLANZAPINE 5 MG TABLET PO SCH (20:07)
[2025-09-01] MEDS: busPIRone 15mg tablet PO SCH (20:08)
--- NOTE | 2025-09-01 20:57 | PROGRESS NOTE ---
Progress Note Dictate Providers to CC ~ Progress Note: Admission date: 08/18/25 Status: VOL HPI: Admitted for danger to self due without the suicide plan to jump out into traffic, endorses hallucinations that have been interfering with sleep. Psychiatric History: Age of initial treatment: initial treatment in his 20s Outpatient: [facility] Inpatient: estimates more than 10 inpatient admission Historical Diagnoses (w/year): OCD, schizophrenia Hx of suicide attempts: x1- age 15 Hx of self-harm: denies Hx of violence: denies Legal hx: denies Historical Psych Medications Substances use history: hx of methamphetamine use disorder (since adolescence, last use was 6 months ago), hx of alcohol use disorder (since adolescence, estimates he quit 5 years ago), denies hx of marijuana use, endorses current ciggarette use Social history: Grew up in [place], graduated high school, raised by mother, has a younger brother. Mother supportive. Has been in [place] for the past 30 years, has been on disability for his mental illness for the majority of his life. Is currently homeless for the past 8 months. Today on Assessment: "my mind is gone" "my mom thinks they can wave a magic wand an I will be healed" Psychiatric Medications: Olanzapine Lamotrigine Fluvoxamine Buspirone Side Effects: Denies AIMs: Tardive Dyskinesia- (present for many years). Review of Psychiatric Symptoms: Mood: denies feeling depressed Suicide/self-harm: denies Sleep: 8 hours Appetite: TID- good appetite Energy: poor- reports he is tired all the time Anxiety: high- OCD, feels restless - highly anxious Irritability: endorses Homicidal/Anger: denies Hallucinations/Paranoia: Delusions of being tortured Trauma symptoms: endorses nightmares Symptoms related to substance withdrawal: denies Mental Status Evaluation General Appearance: poorly groomed, Eye contact: intermittent, poor, avoidant Demeanor: cooperative, pleasant Orientation: to person, place, time, situation Speech: Appropriate rate/rhythm/volume Psychomotor Activity: restless Abnormal Body Movements: present Mood: depressed Affect: constricted Suicidality: denies suicidal ideation Homicidally: denies Thought content: consistent with social norms Thought process: logical, linear Thought perceptions: auditory hallucinations Attention: appear attentive Insight: good Judgment: good - Current Medical Problems: Constipation Hyperlipidemia Hyperglycemia Medical History TBI Hx: denies Seizure Hx: denies JAYLON Hx: denies Diagnoses Schizophrenia OCD Tardive Dyskinesia Polypharmacy - Assessment Femi presents for further evaluation and treatment for schizophrenia, he endorses OCD symptoms as well as AH contributed to hospitalization. Will taper off excessive antidepressants. Will titrate fluvoxamine as primary treatment of OCD. Will continue olanzapine for schizophrenia. 09/01: feels sick, poor sleep last night, significant anxiety, requests to restart buspirone 15 mg po QHS 1 mg prn lorazepam, delusions remain present - Safety risk: low risk of imminent self-harm, low risk of externalized violent behaviors Plan Start Buspirone 15 mg po QHS Continue MiraLAX for constipation QHS Decrease Fluvoxamine from 100 to 50 mg Continue Lamotrigine Decrease Olanzapine Continue Q15 min checks Continue Groups/Milieu Engagement Discharge Plan: [facility] to home with scheduled follow ups for outpatient therapy and medication management Access to firearms: Spent approximately 30 minutes reviewing records and test results, assessing and treatment planning, completing care coordination and documenting the encounter. Discussed risks, including possible adverse effects, and benefits of treatment recommendations including no treatment. Voice recognition software may have been used to dictate this note. There may be errors due to use of such software. Reporting of serious errors is appreciated. Antibiotic Ordered?: No Objective Vitals Vital Signs Date Time Temp Pulse Resp B/P (MAP) Pulse Ox O2 Delivery O2 Flow Rate FiO2 09/01/25 11:34 14 09/01/25 09:24 98.0 92 124/86 (99) 95 Room Air 09/01/25 07:00 0.0 Lab Results: 08/29/25 1423 08/29/25 1423 CODING VISIT-PSYCHIATRY Date of Service: Sep 01, 2025 Billing Provider: ANTONIO GONZALEZ DNP Psych Common Visit Codes: [id number] INP/OBS CARE(Mod) ANTONIO GONZALEZ DNP Sep 01, 2025 20:57
[2025-09-02 07:00] VITALS: RESP 15; O2SAT 95
[2025-09-02] MEDS: fluvoxamine 25 MG tablet PO SCH (07:46)
[2025-09-02 08:00] VITALS: BP 113/64; PULSE 76; RESP 15; TEMP 98.6; O2SAT 95
--- NOTE | 2025-09-02 10:23 | PROGRESS NOTE ---
Progress Note Dictate Providers to CC ~ Progress Note: Admission date: 08/18/25 Status: VOL HPI: Admitted for danger to self due without the suicide plan to jump out into traffic, endorses hallucinations that have been interfering with sleep. Psychiatric History: Age of initial treatment: initial treatment in his 20s Outpatient: [facility] Inpatient: estimates more than 10 inpatient admission Historical Diagnoses (w/year): OCD, schizophrenia Hx of suicide attempts: x1- age 15 Hx of self-harm: denies Hx of violence: denies Legal hx: denies Historical Psych Medications Substances use history: hx of methamphetamine use disorder (since adolescence, last use was 6 months ago), hx of alcohol use disorder (since adolescence, estimates he quit 5 years ago), denies hx of marijuana use, endorses current ciggarette use Social history: Grew up in [place], graduated high school, raised by mother, has a younger brother. Mother supportive. Has been in [place] for the past 30 years, has been on disability for his mental illness for the majority of his life. Is currently homeless for the past 8 months. Today on Assessment: Slept well last night, feeling better today. Psychiatric Medications: Olanzapine Lamotrigine Fluvoxamine Buspirone Side Effects: Denies AIMs: Tardive Dyskinesia- (present for many years). Review of Psychiatric Symptoms: Mood: denies feeling depressed Suicide/self-harm: denies Sleep: 8 hours Appetite: TID- good appetite Energy: poor- reports he is tired all the time Anxiety: high- OCD, feels restless - highly anxious Irritability: endorses Homicidal/Anger: denies Hallucinations/Paranoia: Delusions of being tortured Trauma symptoms: endorses nightmares Symptoms related to substance withdrawal: denies Mental Status Evaluation General Appearance: poorly groomed, Eye contact: intermittent, poor, avoidant Demeanor: cooperative, pleasant Orientation: to person, place, time, situation Speech: Appropriate rate/rhythm/volume Psychomotor Activity: restless Abnormal Body Movements: present Mood: depressed Affect: constricted Suicidality: denies suicidal ideation Homicidally: denies Thought content: consistent with social norms Thought process: logical, linear Thought perceptions: auditory hallucinations Attention: appear attentive Insight: good Judgment: good - Current Medical Problems: Constipation Hyperlipidemia Hyperglycemia Medical History TBI Hx: endorses multiple head injuries Seizure Hx: denies JAYLON Hx: denies Diagnoses Schizophrenia OCD Tardive Dyskinesia Polypharmacy - Assessment Femi presents for further evaluation and treatment for schizophrenia, he endorses OCD symptoms as well as AH contributed to hospitalization. Will taper off excessive antidepressants. Will titrate buspirone for treatment of OCD. Will titrate lamotrigine for mood stability. Will continue olanzapine for schizophrenia. 09/02: Highly anxious, psychotic symptoms manageable - Safety risk: low risk of imminent self-harm, low risk of externalized violent behaviors Plan Increase Buspirone to 15 mg BID Continue MiraLAX for constipation QHS Taper off Fluvoxamine 25 mg po qd Increase Lamotrigine to 200 mg po qd continue Olanzapine 15 mg po qhs Continue Q15 min checks Continue Groups/Milieu Engagement Discharge Plan: [facility] to home with scheduled follow ups for outpatient therapy and medication management Access to firearms: Spent approximately 30 minutes reviewing records and test results, assessing and treatment planning, completing care coordination and documenting the encounter. Discussed risks, including possible adverse effects, and benefits of treatment recommendations including no treatment. Voice recognition software may have been used to dictate this note. There may be errors due to use of such software. Reporting of serious errors is appreciated. Antibiotic Ordered?: No Objective Vitals Vital Signs Date Time Temp Pulse Resp B/P (MAP) Pulse Ox O2 Delivery O2 Flow Rate FiO2 09/02/25 08:00 98.6 76 15 113/64 (80) 95 Room Air 09/01/25 07:00 0.0 Lab Results: 08/29/25 1423 08/29/25 1423 CODING VISIT-PSYCHIATRY Date of Service: Sep 02, 2025 Billing Provider: ANTONIO GONZALEZ DNP Psych Common Visit Codes: [id number] INP/OBS CARE(Mod) ANTONIO GONZALEZ DNP Sep 02, 2025 10:23
[2025-09-02] MEDS ORDERED: OLANZAPINE 5 MG TABLET PO PRN (11:00)
[2025-09-02] MEDS ORDERED: ATOR20TA66 PO (11:07)
[2025-09-02] MEDS ORDERED: LAMO100T PO (11:07)
[2025-09-02] MEDS ORDERED: BUS15T PO (11:07)
[2025-09-02] MEDS ORDERED: OLAN15TA97 PO (11:14)
--- NOTE | 2025-09-02 16:51 | PROGRESS NOTE- Residence ---
Progress Note - Resident Providers to CC Resident Creating Document: MANUEL GREGG RES ~ Antibiotic Timeout Antibiotic Ordered?: No Subjective Patient seen resting comfortably on his bed. Denied any new concerns or complaints. No acute overnight events are reported. Objective Vital Signs Date Time Temp Pulse Resp B/P (MAP) Pulse Ox O2 Delivery O2 Flow Rate FiO2 09/02/25 08:00 98.6 76 15 113/64 (80) 95 Room Air 09/02/25 07:00 0.0 Result Diagram: 08/29/25 1423 08/29/25 1423 General: Awake and Alert, no acute distress. HEENT: Conjunctiva pink, Sclera clear, Mucus Membranes moist. Neck: Supple without masses and tenderness. Resp: Unlabored. Lungs clear to auscultation bilaterally. Heart: Regular Rate and rhythm, normal S1 and S2 without murmur, rub or gallop. Abdomen: Soft and non tender no organomegaly Extremities: No cyanosis,clubbing or edema. Skin: Warm and Dry. Assessment Assessment 56 years old male is admitted in the hospital in the [place] for Behavioral Health unit for evaluation and management of schizophrenia, OCD and suicidal ideation. Plan Plan Schizophrenia Suicidal ideation OCD Management per Psychiatry Hyperlipidemia Started on metformin 40 mg p.o. daily Hypokalemia Currently resolved No acute medical complaints or concerns. Hospitalist team we will continue to monitor and follow the patient during the course of his hospitalization. Manuel Gregg MD Internal Medicine Resident, PGY-3 Date of Service: Sep 02, 2025 Billing Provider: MELVA MATUTE MD, SURYA PRATIK, TONE Sep 02, 2025 16:51
[2025-09-02 19:00] VITALS: RESP 18; O2SAT 95
[2025-09-02 20:00] VITALS: BP 107/64; PULSE 77; RESP 18; TEMP 98.6; O2SAT 95
[2025-09-02] MEDS: busPIRone 15mg tablet PO SCH (20:50)
[2025-09-03 07:00] VITALS: RESP 16; O2SAT 98
[2025-09-03 08:00] VITALS: BP 130/72; PULSE 72; RESP 16; TEMP 97.5; O2SAT 97
[2025-09-03] MEDS: fluvoxamine 25 MG tablet PO SCH (08:02)
[2025-09-03 19:00] VITALS: RESP 18; O2SAT 95
[2025-09-03 20:00] VITALS: BP 166/110; PULSE 73; RESP 18; TEMP 97.6; O2SAT 95
--- NOTE | 2025-09-03 20:14 | PROGRESS NOTE ---
Progress Note Dictate Providers to CC ~ Progress Note: Admission date: 08/18/25 Status: VOL HPI: Admitted for danger to self due without the suicide plan to jump out into traffic, endorses hallucinations that have been interfering with sleep. homeless for the past 8 months. Hx of suicide attempts: x1- age 15 Substances use history: hx of methamphetamine use disorder (since adolescence, last use was 6 months ago), hx of alcohol use disorder (since adolescence, estimates he quit 5 years ago), denies hx of marijuana use, endorses current ciggarette use. Mother supportive. Has been in [place] for the past 30 years, has been on disability for his mental illness for the majority of his life. Is currently homeless for the past 8 months. Today on Assessment: Still has high anxiety- "a school of nursing director can't heal me" "do you think I need to be on hospice?" Psychiatric Medications: Olanzapine Lamotrigine Fluvoxamine Buspirone Side Effects: Denies AIMs: Tardive Dyskinesia- (present for many years). Review of Psychiatric Symptoms: Mood: states he feels depressed because his mind is gone Suicide/self-harm: denies Sleep: 8 hours- "good" Appetite: TID- good appetite Energy: good energy today Anxiety: high- OCD, feels restless - highly anxious, endorses muscle tension Irritability: endorses Homicidal/Anger: denies Hallucinations/Paranoia: endorses delusions of "dying" Trauma symptoms: endorses nightmares Symptoms related to substance withdrawal: denies Mental Status Evaluation General Appearance: poorly groomed, Eye contact: intermittent, poor, avoidant Demeanor: cooperative, pleasant Orientation: to person, place, time, situation Speech: Appropriate rate/rhythm/volume Psychomotor Activity: restless Abnormal Body Movements: present Mood: depressed Affect: constricted Suicidality: denies suicidal ideation Homicidally: denies Thought content: consistent with social norms Thought process: logical, linear Thought perceptions: auditory hallucinations Attention: appear attentive Insight: good Judgment: good - Current Medical Problems: Constipation Hyperlipidemia Hyperglycemia Medical History TBI Hx: endorses multiple head injuries Seizure Hx: denies JAYLON Hx: denies Diagnoses Schizophrenia OCD Tardive Dyskinesia Polypharmacy - Assessment Femi presents for further evaluation and treatment for schizophrenia, he endo rses OCD symptoms as well as AH contributed to hospitalization. Will taper off excessive antidepressants. Will titrate buspirone for treatment of OCD. Will titrate lamotrigine for mood stability. Will continue olanzapine for schizophrenia. 09/03: high anxiety, but no longer hyperactive or intrusive. - Safety risk: low risk of imminent self-harm, low risk of externalized violent behaviors Plan Continue Buspirone to 15 mg BID Increase MiraLAX for constipation from QHS to BID Taper off Fluvoxamine 25 mg po qd Continue Lamotrigine to 200 mg po qd continue Olanzapine 15 mg po qhs Continue Q15 min checks Continue Groups/Milieu Engagement Discharge Plan: ---> Send Meds to [facility] Sunday to home with scheduled follow ups for outpatient therapy and medication management Access to firearms: Spent approximately 30 minutes reviewing records and test results, assessing and treatment planning, completing care coordination and documenting the encounter. Discussed risks, including possible adverse effects, and benefits of treatment recommendations including no treatment. Voice recognition software may have been used to dictate this note. There may be errors due to use of such software. Reporting of serious errors is appreciated. Antibiotic Ordered?: No Objective Vitals Vital Signs Date Time Temp Pulse Resp B/P (MAP) Pulse Ox O2 Delivery O2 Flow Rate FiO2 09/03/25 08:00 97.5 72 16 130/72 (91) 97 Room Air 09/03/25 07:00 0.0 CODING VISIT-PSYCHIATRY Date of Service: Sep 03, 2025 Billing Provider: ANTONIO GONZALEZ DNP Psych Common Visit Codes: [id number] INP/OBS CARE(Low), [id number] INP/OBS CARE(Mod) ANTONIO GONZALEZ DNP Sep 03, 2025 20:14
[2025-09-03] MEDS: polyethylene glycol 3350 17gm powd pack PO SCH (20:15)
[2025-09-03 20:35] VITALS: BP 120/86; PULSE 74
[2025-09-04 07:00] VITALS: RESP 15; O2SAT 98
[2025-09-04 08:00] VITALS: BP 184/76; PULSE 60; RESP 15; TEMP 97.6; O2SAT 98
--- NOTE | 2025-09-04 09:56 | PROGRESS NOTE ---
Daily Progress Note Providers to CC ~ Antibiotic Timeout Antibiotic Ordered?: No Subjective This is the hospitalist progress note on patients hospitalized at [facility]. The patient is resting comfortably in bed and has not no acute complaints and none were voiced by nursing staff Objective Vital Signs Date Time Temp Pulse Resp B/P (MAP) Pulse Ox O2 Delivery O2 Flow Rate FiO2 09/03/25 20:35 74 120/86 (97) 09/03/25 20:00 97.6 18 95 Room Air 09/03/25 07:00 0.0 Gen. No acute distress alert and oriented Lungs clear to ascultation bilaterally, no wheezes rales or rhonchi appreciated Heart normal sinus rhythm no murmurs rubs or clicks noted Abdomen soft nontender bowel sounds are normoactive Lower extremities no clubbing cyanosis, nor edema appreciated bilaterally Problem\Assessment\Plan Problems/Diagnosis: (1) Suicidal ideation # schizophrenia # OCD # suicidal ideation Followed by Psychiatry # hyperlipidemia Continue 40 mg of atorvastatin Monitor liver function tests/ CMP in 12 weeks # hypokalemia Resolved with a potassium replacement # leukocytosis with a mild left shift Repeat CBC white blood cell count has normalized, No acute medical complaints or concerns The hospitalist service will continue to follow the patient Date of Service: Sep 04, 2025 Billing Provider: ROLAND LOPEZ DO Common Visit Codes: [id number] INP/OBS CARE(LOW) ROLAND LOPEZ DO Sep 04, 2025 09:56
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
[2025-09-04 19:00] VITALS: RESP 16; O2SAT 95
[2025-09-04 20:00] VITALS: BP 128/75; PULSE 77; RESP 16; TEMP 98.9; O2SAT 95
[2025-09-05 07:00] VITALS: RESP 12; O2SAT 99
[2025-09-05 08:00] VITALS: BP 128/75; PULSE 67; RESP 12; TEMP 98.3; O2SAT 99
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
[2025-09-05 19:00] VITALS: RESP 16; O2SAT 97
[2025-09-05] MEDS: busPIRone 15mg tablet PO SCH (20:24)
[2025-09-05 20:40] VITALS: BP 125/76; PULSE 76; RESP 16; TEMP 98.3; O2SAT 97
[2025-09-06 07:00] VITALS: RESP 15; O2SAT 94
[2025-09-06 08:00] VITALS: BP 120/74; PULSE 71; RESP 15; TEMP 97.8; O2SAT 94
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
--- NOTE | 2025-09-06 17:50 | PROGRESS NOTE- Residence ---
Progress Note - Resident Providers to CC Resident Creating Document: RAZ SEGUNDO RES ~ Antibiotic Timeout Antibiotic Ordered?: No Subjective Seen and examined the patient at bedside, Denies any acute symptoms other than mild pain in his hands Objective Vital Signs Date Time Temp Pulse Resp B/P (MAP) Pulse Ox O2 Delivery O2 Flow Rate FiO2 09/06/25 15:48 16 09/06/25 08:00 97.8 71 120/74 (89) 94 Room Air 09/04/25 08:00 0.0 General: Awake and Alert, no acute distress. HEENT: Conjunctiva pink, Sclera clear, Mucus Membranes moist. Neck: Supple without masses and tenderness. Resp: Unlabored. Lungs clear to auscultation bilaterally. Heart: Regular Rate and rhythm, normal S1 and S2 without murmur, rub or gallop. Abdomen: Soft and non tender no organomegaly Extremities: No cyanosis,clubbing or edema. Skin: Warm and Dry. Advance Care Planning Advanced Care plannin - 30 Minutes Assessment Assessment 56 years old male is admitted in the hospital in the [facility] unit for evaluation and management of schizophrenia, OCD and suicidal ideation. Plan Plan Schizophrenia Suicidal ideation OCD Management per Psychiatry Hyperlipidemia Started on metformin 40 mg p.o. daily Hypokalemia Currently resolved No acute medical complaints or concerns. Hospitalist team we will continue to monitor and follow the patient during the course of his hospitalization. Raz Segundo PGY1 Date of Service: Sep 06, 2025 Billing Provider: EDINSON ZHANG MD Common Visit Codes: [id number] INP/OBS CARE(MOD) RAZ SEGUNDO RES Sep 06, 2025 17:50 EDINSON ZHANG MD Sep 07, 2025 06:29
[2025-09-06 20:00] VITALS: BP 109/73; PULSE 94; RESP 18; TEMP 97.7; O2SAT 97
[2025-09-07 07:26] VITALS: BP 114/62; PULSE 77; RESP 14; TEMP 98.1; O2SAT 98
[2025-09-07 08:55] VITALS: RESP 14; O2SAT 98
--- NOTE | 2025-09-07 09:58 | RADIOLOGY REPORT ---
EXAM: DI CHEST,SINGLE VIEW Indication: pain; Rule out TB Technique: Single frontal view of the chest was obtained Comparison: DI CHEST,SINGLE VIEW on DOS: 08/22/25 FINDINGS: Lines and Tubes: None Lungs: No focal consolidation. Pleura: No effusion. No pneumothorax. Cardiomediastinal contours: Unremarkable Bones: No acute osseous abnormality. IMPRESSION: No acute cardiopulmonary disease.
--- NOTE | 2025-09-07 13:57 | DISCHARGE SUMMARY ---
Discharge Summary Providers to CC ~ Discharge Summary Admission Diagnosis: schizophrenia Discharge Diagnosis\\Comment: stable Operations\\Procedures: none Consultants: Hospitalist Complications: none noted Condition on DC: Stable 2 or more antipsychotic used: No 2/more antipsychotic addressed: No Does Patient smoke: No Smoking education given.: No Discharge Summary: Admission date: 08/18/25 Status: VOL HPI: Admitted for danger to self due without the suicide plan to jump out into [facility], endorses hallucinations that have been interfering with sleep. homeless for the past 8 months. Hx of suicide attempts: x1- age 15 Substances use history: hx of methamphetamine use disorder (since adolescence, last use was 6 months ago), hx of alcohol use disorder (since adolescence, estimates he quit 5 years ago), denies hx of marijuana use, endorses current ciggarette use. Mother addie. Has been in [place] for the past 30 years, has been on disability for his mental illness for the majority of his life. Is currently homeless for the past 8 months. Today on Assessment: Positive mood, optimistic about discharge, anxiety managable. Psychiatric Medications: Olanzapine Lamotrigine Fluvoxamine Buspirone Side Effects: Denies AIMs: Tardive Dyskinesia- (present for many years). Review of Psychiatric Symptoms: Mood: endorses depression Suicide/self-harm: denies Sleep: sleep improved 7.5 hours Appetite: TID- good appetite Energy: good energy today Anxiety: manageable Irritability: endorses Homicidal/Anger: denies Hallucinations/Paranoia: endorses delusions of "dying" Trauma symptoms: endorses nightmares Symptoms related to substance withdrawal: denies Mental Status Evaluation General Appearance: poorly groomed, Eye contact: intermittent, poor, avoidant Demeanor: cooperative, pleasant Orientation: to person, place, time, situation Speech: Appropriate rate/rhythm/volume Psychomotor Activity: restless Abnormal Body Movements: present Mood: depressed Affect: constricted Suicidality: denies Homicidally: denies Thought content: consistent with social norms Thought process: logical, linear Thought perceptions: auditory hallucinations Attention: appear attentive Insight: good Judgment: good - Current Medical Problems: Constipation Hyperlipidemia Hyperglycemia Medical History TBI Hx: endorses multiple head injuries Seizure Hx: denies JAYLON Hx: denies Discharge Diagnoses Schizophrenia OCD Tardive Dyskinesia Polypharmacy Discharge Assessment Femi presents for further evaluation and treatment for schizophrenia, he endorses OCD symptoms as well as AH contributed to hospitalization. Mood an anxiety has stabilized since being admitted on his current medication regimen. No longer suicidal, established safety plan. Will continue buspirone for treatment of OCD. Will continue lamotrigine for mood stability. Will continue for schizophrenia. Optimistic about discharge plan to [facility]. Safety risk: low risk of imminent self-harm, low risk of externalized violent behaviors Discharge Plan: [facility] Sunday Continue Buspirone to 15 mg BID Continue MiraLAX for constipation from QHS to BID Continue Lamotrigine to 200 mg po qd continue Olanzapine 15 mg po qhs Attend scheduled follow ups for outpatient therapy and medication management No Access to firearms. Safety plan established, reviewed, copy sent home (copy in the chart) Spent approximately 30 minutes reviewing records and test results, assessing and treatment planning, completing care coordination and documenting the encounter. Discussed risks, including possible adverse effects, and benefits of treatment recommendations including no treatment. Voice recognition software may have been used to dictate this note. There may be errors due to use of such software. Re porting of serious errors is appreciated. *Problems/Diagnosis: (1) Schizophrenia Status: Chronic (2) OCD (obsessive compulsive disorder) Status: Chronic (3) PTSD (post-traumatic stress disorder) Status: Chronic (4) Suicidal ideation Status: Resolved Total Time Spent on D/C: Up to 30 Minutes Counseling Services Smoking & Tobacco Cessation: N/A CODING VISIT-PSYCHIATRY Date of Service: Sep 07, 2025 Billing Provider: ANTONIO GONZALEZ DNP Psych Common Visit Codes: 38147-KWD/OBS DISCH DAY <30min Problem Qualifiers (1) Schizophrenia: Qualified Codes: F20.9 - Schizophrenia, unspecified (2) OCD (obsessive compulsive disorder): Qualified Codes: F42.9 - Obsessive-compulsive disorder, unspecified ANTONIO GONZALEZ DNP Sep 07, 2025 13:57
== END 2025-09-07 14:05 | DRG 885 ==
LOC: ER 11:23 → UNDOADMIN 08-18 11:46 → ADULT MH 08-18 11:46
PROVIDERS: ADMIT Psychiatry & Neurology Psychiatry; ATTEND Psychiatry & Neurology Psychiatry
DX: F20.9 Schizophrenia, unspecified (principal); Z59.00 Homelessness unspecified; R45.851 Suicidal ideations; F32.A Depression, unspecified; Z20.822 Contact with and (suspected) exposure to COVID-19; F42.9 Obsessive-compulsive disorder, unspecified; E78.5 Hyperlipidemia, unspecified; E87.6 Hypokalemia; D72.829 Elevated white blood cell count, unspecified; F43.10 Post-traumatic stress disorder, unspecified; F41.9 Anxiety disorder, unspecified; K59.00 Constipation, unspecified; R73.9 Hyperglycemia, unspecified; G24.01 Drug induced subacute dyskinesia; Z91.148 Patient's other noncompliance with medication regimen for other reason; Z88.0 Allergy status to penicillin
CPT/HCPCS: 36415; 71045; 80048; 80053; 80061; 80305; 80320; 81001; 82248; 83036; 83721; 84132; 84145; 84146; 84443; 85025; 85651; 86140; 86704; 86705; 87081; 87340; 87804; 87811; 93005; 99285; A6250; Q0161; Q0177